=== PATIENT | female | born 1935 | race Caucasian/White ===

== ENCOUNTER 2019-08-29 17:44 | Emergency (ER) | payer MEDICARE, SELFPAY ==
[2019-08-29 18:00] VITALS: BP 185/57; PULSE 71; RESP 16; TEMP 37.8; O2SAT 98
--- NOTE | 2019-08-29 18:30 | ED.GENADULT ---
HPI - General Adult General Chief complaint: Fall Stated complaint: fall Time Seen by Provider: 08/29/19 18:07 Source: patient and RN notes reviewed Mode of arrival: ambulatory Limitations: no limitations History of Present Illness HPI narrative: Patient presents today complaining of an injury to her forehead and right hand. She was outside walking and exercising when she tripped and fell forward, striking her forehead on the concrete. Injury occurred just prior to arrival. Denies loss of consciousness. Denies any current headache, nausea or vomiting, dizziness or lightheadedness, vision changes, neck pain. Believes she is up-to-date on her tetanus vaccine. Reports she did have a nosebleed following the injury, but this stopped prior to arrival. She does take aspirin daily, but is on no other blood thinners. MD complaint: Head injury Related Data Home Medications Medication Instructions Recorded Confirmed aspirin 81 mg PO DAILY 08/29/19 08/29/19 atenolol 1 mg DAILY 08/29/19 08/29/19 biotin 1 mg DAILY 08/29/19 08/29/19 cholecalciferol (vitamin D3) 50 mcg PO DAILY 08/29/19 08/29/19 [Vitamin D3] hydrochlorothiazide 1 mg PO DAILY 08/29/19 08/29/19 levothyroxine 1 mcg PO DAILY 08/29/19 08/29/19 simvastatin 1 mg PO DAILY 08/29/19 08/29/19 vitamins A,C,A-nzth-ldkato 2 tablet PO DAILY 08/29/19 08/29/19 [PreserVision AREDS] Allergies Allergy/AdvReac Type Severity Reaction Status Date / Time No Known Allergies Allergy Verified 08/29/19 18:15 Review of Systems Review of Systems: Narrative: CONSTITUTIONAL: Denies body aches, fever, chills, or sweats. EYES: Denies visual changes, redness, or discharge. ENT: Denies rhinorrhea, congestion, sore throat, or otalgia. CARDIOVASCULAR: Denies chest pain, palpitations, or edema. RESPIRATORY: Denies cough or dyspnea. GASTROINTESTINAL: Denies abdominal pain, nausea, vomiting, or diarrhea. GENITOURINARY: Denies dysuria or hematuria. SKIN: Denies rash, itching. + Wound to right hand and forehead MUSCULOSKELETAL: Denies back pain, joint pain, or myalgia. NEUROLOGIC: Denies headache, numbness, tingling, or weakness. PSYCH: Denies depression or anxiety. [facility] Family History Family History (Updated 08/30/18 @ 10:54 by DOCTOR UNKNOWN) Mother Cerebrovascular accident Other Diabetes mellitus Family history of obesity Social History Social History Smoking status: Never smoker Second hand tobacco smoke exposure: No Alcohol intake: current Gender identity (if verbalized by the patient): Female Comments At time of signature, I have reviewed and agree with nursing past medical, surgical, social and family history unless otherwise noted. Please see nursing chart for further information. There is no relevant family history pertinent to the presenting complaint Exam Narrative: Exam Narrative: GENERAL: Well-appearing, well-nourished, and in no acute distress. HEAD: Normocephalic, atraumatic. EYES: EOMI. PERRL. No redness or drainage. Conjunctivae normal. No pain with EOM. Orbits are nontender. ENT: Mucous membranes pink and moist. Nares clear. No rhinorrhea. TMs normal bilaterally. Throat normal. Uvula midline. Nasal bridge is edematous and erythematous with mild tenderness. No nasal deformity noted. 1 cm laceration with large hematoma and abrasion to the forehead. Continues to ooze blood. Seems contaminated with many punctate black foreign bodies. NECK: Normal AROM. Supple. No lymphadenopathy. Nontender CHEST: No respiratory distress. Clear to auscultation. HEART: Regular rate and rhythm. No murmur appreciated. Normal peripheral pulses. EXTREMITIES: Normal range of motion. No edema. SKIN: Warm, dry, no rash. Capillary refill normal. Normal skin turgor. 1cm partial-thickness irregular skin tear to the base of the right thumb, palmar aspect. NEURO: No focal deficits. Alert and oriented x3. Gait steady. Answers all questions appropriately. PSYCH: Normal aff
--- NOTE | 2019-08-29 18:32 | PC.NURSE ---
1827- All Wounds cleansed with NS. Rt hand dressed by NP. Serrano and taped applied to forehead.
--- NOTE | 2019-08-29 18:44 | PC.NURSE ---
1800- Pt states she believes she is upto date on her tetanus, as she just got a new PCP about a year ago and was update on many things.
== END 2019-08-29 18:28 | disposition short-term general hospital (02) ==
PROVIDERS: Emergency Provider Nurse Practitioner; PCP Family Medicine
DX: S01.82XA Laceration with foreign body of other part of head, initial encounter (principal); S61.021A Laceration with foreign body of right thumb without damage to nail, initial encounter; Z79.82 Long term (current) use of aspirin; E78.00 Pure hypercholesterolemia, unspecified; I10 Essential (primary) hypertension; E05.90 Thyrotoxicosis, unspecified without thyrotoxic crisis or storm; W01.0XXA Fall on same level from slipping, tripping and stumbling without subsequent striking against object, initial encounter
CPT/HCPCS: 12001; 99212; G0463

== ENCOUNTER 2019-08-29 18:52 | Emergency (ER) | payer MEDICARE, SELFPAY ==
--- NOTE | ~2019-08-29 | CT_ITS ---
EXAMINATION: CT brain wo con EXAM DATE: 08/29/2019 19:47 INDICATION: Fall, head injury. Forehead laceration. TECHNIQUE: Spiral CT of the head was performed without contrast. Axial, coronal and sagittal images were reviewed. The dose-length product (DLP) for this examination was 605.33 mGy-cm. The exposure w as tailored according to patient size, and iterative reconstruction (ASIR) was used as additional dos e reduction technique. There is no prior study for comparison. FINDINGS: There is no acute intraparenchymal hemorrhage. No evidence of intraparenchymal brain mass lesion. No evidence of acute infarction. Please note that initial head CT has limited sensitivity f or small or acute infarctions. There is mild periventricular and subcortical hypodensity, nonspecific but probably related to small vessel ischemic disease. There is mild prominence of the sulci and v entricles related to cerebral atrophy. There is intracranial carotid arteriosclerosis. There are n o extra-axial collections. There is no mass effect or midline shift. Patient has had bilateral ocul ar lens surgery. Small left frontal scalp contusion. Left maxillary sinus air-fluid level, mild to m oderate left frontal sinus mucoperiosteal thickening. IMPRESSION: 1. No acute intracranial findings. 2. Chronic age related findings. 3. Small left frontal scalp contusion. Reviewed, dictated and finalized at location A.
--- NOTE | ~2019-08-29 | CT_ITS ---
EXAMINATION: CT facial & cervical spine wo EXAM DATE: 08/29/2019 20:57 INDICATION: Fall, facial injury. Left frontal scalp contusion. TECHNIQUE: Spiral CT of the facial bones was acquired in the axial plane. Coronal reformatted images were also reviewed. Spiral CT of the cervical spine was performed without contrast. Axial images we re reviewed. Coronal and sagittal reformatted images were also reviewed. The dose-length product (DL P) for this examination was 158.89 mGy-cm. The exposure was tailored according to patient size, and iterative reconstruction (ASIR) was used as additional dose reduction technique. There is no prior s tudy for comparison. FINDINGS: FACIAL CT: There are no displaced nasal bone fractures. The mandible, sinuses and orbits are intact. The orbits, globes and extraocular muscles are unremarkable. There is moderate left maxillary si nus mucoperiosteal thickening which is likely chronic given the wall thickening as well, with small a mount of fluid. There is small left frontal scalp contusion without underlying fracture. Mild left f rontal mucoperiosteal thickening. CERVICAL CT: There is no evidence of acute cervical fracture. The odontoid process is intact. Pre-d ens space is normal. Prevertebral soft tissue is normal. There are no soft tissue abnormalities jose ntified. There is no disc space widening or traumatic vertebral body subluxation suspected. There i s moderate cervical thoracic disc disease and some advanced upper cervical arthropathy. A detailed level by level evaluation of spondylosis can be added as addendum if requested. IMPRESSION: 1. No acute facial or cervical fracture. 2. Left maxillary and frontal opacity. Reviewed, dictated and finalized at location A.
[2019-08-29 18:55] VITALS: BP 189/64; PULSE 65; RESP 16; TEMP 36.6; O2SAT 98
[2019-08-29] MEDS: LIDO 1%/EPINEPHRINE 1:100,000 20 ML VIAL INFILTRATE (21:00)
[2019-08-29] MEDS: TETANUS,DIPHTHERIA,AC PERTUSSIS ADULT (0.5 ML) BOOSTRIX IM (22:00)
--- NOTE | 2019-08-29 22:53 | ED.FALL ---
HPI - Fall General Chief Complaint: Fall <Jennifer Stokes PA-C - Last Filed: 08/29/19 23:06> Stated Complaint: fall <Jennifer Stokes PA-C - Last Filed: 08/29/19 23:06> Time Seen by Provider: 08/29/19 20:33 <Jennifer Stokes PA-C - Last Filed: 08/29/19 23:06> Source: patient <Jennifer Stokes PA-C - Last Filed: 08/29/19 23:06> Mode of arrival: wheelchair <Jennifer Stokes PA-C - Last Filed: 08/29/19 23:06> Limitations: no limitations <Jennifer Stokes PA-C - Last Filed: 08/29/19 23:06> History of Present Illness HPI Narrative: This is a 84 year old female that presents to the ER for a fall this afternoon. Reports she was out for a walk and tripped over some uneven concrete. Reports she caught herself with her hands and hit her face. Reports laceration to her forehead and right hand. Reports swelling and bruising to the nose. Reports she takes a baby Aspirin daily. She was seen at the Urgent care for this and they cleaned and glued the laceration on the right hand and sent her here for further evaluation. Unsure of her last tetanus vaccine. Denies prodromal symptoms, loss of consciousness, vision changes, vomiting, numbness or weakness. <Jennifer Stokes PA-C - Last Filed: 08/29/19 23:06> Related Data Home Medications: Home Medications Medication Instructions Recorded Confirmed aspirin 81 mg PO DAILY 08/29/19 08/29/19 atenolol 1 mg DAILY 08/29/19 08/29/19 biotin 1 mg DAILY 08/29/19 08/29/19 cholecalciferol (vitamin D3) 50 mcg PO DAILY 08/29/19 08/29/19 [Vitamin D3] hydrochlorothiazide 1 mg PO DAILY 08/29/19 08/29/19 levothyroxine 1 mcg PO DAILY 08/29/19 08/29/19 simvastatin 1 mg PO DAILY 08/29/19 08/29/19 vitamins A,C,W-xjul-aqcjnu 2 tablet PO DAILY 08/29/19 08/29/19 [PreserVision AREDS] <Jennifer Stokes PA-C - Last Filed: 08/29/19 23:06> Allergies/Adverse Reactions: Allergies Allergy/AdvReac Type Severity Reaction Status Date / Time No Known Allergies Allergy Verified 08/29/19 18:58 <Jennifer Stokes PA-C - Last Filed: 08/29/19 23:06> Review of Systems Review of Systems: Narrative: CONSTITUTIONAL: Denies fever EYES: Denies visual changes CARDIOVASCULAR: Denies chest pain RESPIRATORY: Denies dyspnea. GASTROINTESTINAL: Denies vomiting SKIN: Reports laceration MUSCULOSKELETAL: Denies back pain, joint pain, or myalgia. NEUROLOGIC: Denies headache, numbness, or weakness. <Jennifer Stokes PA-C - Last Filed: 08/29/19 23:06> All systems reviewed & are unremarkable except as noted in HPI and below <Jennifer Stokes PA-C - Last Filed: 08/29/19 23:06> [facility] Past Medical History Medical History: Medical History (Updated 08/30/19 @ 00:00 by Background Daemon) History of chronic hypertension History of hyperlipidemia History of hypothyroidism <Jennifer Stokes PA-C - Last Filed: 08/29/19 23:06> Family History Family History: Family History (Updated 08/30/18 @ 10:54 by DOCTOR UNKNOWN) Mother Cerebrovascular accident Other Diabetes mellitus Family history of obesity <Jennifer Stokes PA-C - Last Filed: 08/29/19 23:06> Social History Social History: Social History Smoking status: Never smoker Second hand tobacco smoke exposure: No Alcohol intake: current Gender identity (if verbalized by the patient): Female <Jennifer Stokes PA-C - Last Filed: 08/29/19 23:06> Exam Narrative: Exam Narrative: GENERAL: Elderly, well-nourished, and in no acute distress. HEAD: Normocephalic. Abrasions to the forehead with 1cm linear laceration into subcutaneous tissue EYES: PERRLA and EOMI. ENT: Nares clear, no rhinorrhea or epistaxis. Mucous membranes moist. Oropharynx without tonsillar hypertrophy exudate or other lesions. Bilateral TMs pearly guevara non-bulging NECK: Supple. No adenopathy or masses. Mild midline cervical spinal tenderness CHEST: Clear to auscultation. No respiratory distress. No wheezes rales or rhonchi HEART: R
[2019-08-29 23:00] VITALS: PULSE 67; RESP 16; O2SAT 98
== END 2019-08-29 23:00 | disposition home or self-care (01) ==
PROVIDERS: Emergency Provider General Practice; PCP Family Medicine
DX: S01.81XA Laceration without foreign body of other part of head, initial encounter (principal); S61.411A Laceration without foreign body of right hand, initial encounter; M54.2 Cervicalgia; I10 Essential (primary) hypertension; R78.5 Finding of other psychotropic drug in blood; E03.9 Hypothyroidism, unspecified; Z23 Encounter for immunization; W18.09XA Striking against other object with subsequent fall, initial encounter
CPT/HCPCS: 12011; 70450; 70486; 72125; 90471; 90715; 99212; 99284; G0463

== ENCOUNTER 2020-07-30 17:43 | Emergency (ER) | payer MEDICARE, SELFPAY ==
[2020-07-30 17:50] VITALS: BP 157/75; PULSE 79; RESP 16; TEMP 36.7; O2SAT 99
[2020-07-30 17:51] VITALS: BP 157/75; PULSE 79; RESP 16; TEMP 36.7; O2SAT 99
--- NOTE | 2020-07-30 18:16 | ED.WOUNDLAC ---
HPI - Wound/Laceration General Chief Complaint: Wound/Laceration Stated Complaint: fall/head injury Time Seen by Provider: 07/30/20 17:46 Source: patient and RN notes reviewed Mode of arrival: ambulatory Limitations: no limitations History of Present Illness HPI narrative: Patient presents today with a wound to her right eyebrow. She tripped and fell outside while walking the neighborhood just prior to arrival. Denies loss of consciousness. Denies any headache, dizziness or lightheadedness, nausea or vomiting, vision changes. She does not take any aspirin or blood thinners. She currently rates her pain 2/10 and took a dose of Tylenol prior to arrival. She is up-to-date on her tetanus vaccine. Related Data Home Medications Medication Instructions Recorded Confirmed cholecalciferol (vitamin D3) 50 mcg PO DAILY 08/29/19 07/30/20 [Vitamin D3] vitamins A,C,M-ogsl-cxykfg 2 tablet PO DAILY 08/29/19 07/30/20 [PreserVision AREDS] biotin 10,000 mcg capsule mcg PO 02/13/20 04/26/20 levothyroxine 25 mcg tablet 25 mcg PO DAILY 02/13/20 07/30/20 hydrocortisone 1 % topical cream 1 applic TOPICAL BID PRN 04/26/20 07/30/20 Allergies Allergy/AdvReac Type Severity Reaction Status Date / Time No Known Allergies Allergy Verified 07/30/20 17:44 Review of Systems Review of Systems: Narrative: CONSTITUTIONAL: Denies body aches, fever, chills, or sweats. EYES: Denies visual changes, redness, or discharge. ENT: Denies rhinorrhea, congestion, sore throat, or otalgia. CARDIOVASCULAR: Denies chest pain, palpitations, or edema. RESPIRATORY: Denies cough or dyspnea. GASTROINTESTINAL: Denies abdominal pain, nausea, vomiting, or diarrhea. GENITOURINARY: Denies dysuria or hematuria. SKIN: Denies rash, itching. + Right eyebrow injury MUSCULOSKELETAL: Denies back pain, joint pain, or myalgia. NEUROLOGIC: Denies headache, numbness, tingling, or weakness. PSYCH: Denies depression or anxiety. [facility] Past Medical History Medical History Arthritis of knee left Benign hypertension Chronic pruritus History of chronic hypertension History of hyperlipidemia History of hypothyroidism Hypothyroidism determined by thyroid function test Presbycusis of both ears Surgical History Surgical History History of knee replacement (~2011) around 2015 Hx of tonsillectomy Family History Family History Mother Cerebrovascular accident Other Diabetes mellitus Family history of obesity Social History Social History Social History: Smoking status: Never smoker Second hand tobacco smoke exposure: No Alcohol intake: never Substance use: never Substance use type: does not use Gender identity (if verbalized by the patient): Female Comments At time of signature, I have reviewed and agree with nursing past medical, surgical, social and family history unless otherwise noted. Please see nursing chart for further information. There is no relevant family history pertinent to the presenting complaint Exam Narrative: Exam Narrative: GENERAL: Well-appearing, well-nourished, and in no acute distress. HEAD: Normocephalic, atraumatic. EYES: EOMI. PERRL. No redness or drainage. Conjunctivae normal. ENT: Mucous membranes pink and moist. Nares clear. No rhinorrhea. NECK: Normal AROM. Nontender. Supple. No lymphadenopathy. CHEST: No respiratory distress. EXTREMITIES: Normal range of motion. No edema. SKIN: Warm, dry, no rash. Capillary refill normal. Normal skin turgor. 5.5x3.5cm hematoma to the right eyebrow with superficial skin avulsion around the edges. No active bleeding. Areas of skin avulsion have obvious dirt from the street. NEURO: No focal deficits. Alert and oriented x3. Gait chloe
== END 2020-07-30 18:24 | disposition home or self-care (01) ==
PROVIDERS: Emergency Provider Nurse Practitioner; PCP Family Medicine
DX: S01.111A Laceration without foreign body of right eyelid and periocular area, initial encounter (principal); W01.0XXA Fall on same level from slipping, tripping and stumbling without subsequent striking against object, initial encounter; M17.0 Bilateral primary osteoarthritis of knee; I10 Essential (primary) hypertension; E78.5 Hyperlipidemia, unspecified; E03.9 Hypothyroidism, unspecified; Z96.659 Presence of unspecified artificial knee joint
CPT/HCPCS: 99212; A9270; G0463

== ENCOUNTER 2020-08-01 14:17 | Outpatient (CLI) | payer MEDICARE, SELFPAY ==
--- NOTE | ~2020-08-01 | XR_ITS ---
XR hand RT min 3V DATE: 08/01/2020 14:50 INDICATION: Right wrist, hand and finger injury TECHNIQUE: 3 views COMPARISON: None FINDINGS: There is a linear intra-articular fracture of the radial styloid process without displaceme nt or angulation. There is prominent osteoarthritic change at the triscaphe and first carpometacarpal joint. There is o steoarthritic change at the carpophalangeal and interphalangeal joints. Mild chondrocalcinosis at the triangular cartilage. IMPRESSION: Linear intra-articular fracture of the radial styloid process Polyarticular osteoarthritis Reviewed, dictated and finalized at location A.
== END 2020-08-01 14:18 | disposition home or self-care (01) ==
LOC: ANHIMG 14:22
PROVIDERS: PCP Family Medicine; Visit Provider Physician Assistant
DX: S69.91XA Unspecified injury of right wrist, hand and finger(s), initial encounter (principal); M79.89 Other specified soft tissue disorders; S52.514A Nondisplaced fracture of right radial styloid process, initial encounter for closed fracture; M19.031 Primary osteoarthritis, right wrist
CPT/HCPCS: 73130

== ENCOUNTER → 2022-02-25 11:37 | Outpatient (CLI) | payer MEDICARE, SELFPAY ==
--- NOTE | ~2022-02-25 | XR_ITS ---
EXAM: XR shoulder RT min 2V DATE: 02/25/2022 12:13 HISTORY: Adhesive capsulitis of unspecified shoulder no injury lrom . COMPARISON: None available. FINDINGS: Decreased mineralization. No fracture or dislocation. No lytic or blastic lesion. Moderate AC joint hypertrophy. Severe glenohumeral narrowing, sclerosis, osteophytosis, and subchondral cyst formation. Subacromial narrowing. No erosion or periosteal change. Soft tissues within normal limits. IMPRESSION: Severe, end-stage right glenohumeral osteoarthritis. Reviewed, dictated and finalized at location K. ITORY MANAGER
== END ==
PROVIDERS: PCP Family Medicine; Visit Provider Family Medicine
DX: M25.519 Pain in unspecified shoulder (principal); M75.00 Adhesive capsulitis of unspecified shoulder; M19.011 Primary osteoarthritis, right shoulder
CPT/HCPCS: 73030

== ENCOUNTER 2022-05-17 16:06 | Emergency (ER) | payer MEDICARE, SELFPAY ==
--- NOTE | 2022-05-17 16:09 | ED.GENADULT ---
HPI - General Adult General Chief complaint: Wound/Laceration Stated complaint: R HAND LACERATION Time Seen by Provider: 05/17/22 16:10 Source: patient Mode of arrival: ambulatory Limitations: no limitations History of Present Illness HPI narrative: 87-year-old female patient presents to the [facility] with complaints of a laceration to the right hand. Patient states that she tripped outside today and fell and when she went to go and catch herself with her hands cut her right hand on 1 of the metal gutters outside. Patient's last tetanus shot was in 2019. Related Data Allergies Allergy/AdvReac Type Severity Reaction Status Date / Time No Known Allergies Allergy Verified 05/17/22 16:08 Review of Systems Review of Systems: CONSTITUTIONAL: Denies fever, chills, or sweats. EYES: Denies visual changes, redness, or discharge. ENT: Denies rhinorrhea, congestion, sore throat, or otalgia. CARDIOVASCULAR: Denies chest pain, palpitations, or edema. RESPIRATORY: Denies cough or dyspnea. GASTROINTESTINAL: Denies abdominal pain, nausea, vomiting, or diarrhea. GENITOURINARY: Denies dysuria or hematuria. SKIN: Denies rash or itching. positive laceration to right hand MUSCULOSKELETAL: Denies back pain, joint pain, or myalgia. NEUROLOGIC: Denies headache, numbness, or weakness. PSYCHIATRIC: Denies anxiety or depression. 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 Primary hypertension Radial styloid fracture Right shoulder pain Right wrist injury Shoulder pain Traumatic ecchymosis of face Surgical History Surgical History History of knee replacement (~2011) around 2015 Hx of tonsillectomy Family History Family History Mother Cerebrovascular accident Other Diabetes mellitus Family history of obesity Social History Social History Social History: Smoking status: Never smoker Second hand tobacco smoke exposure: No Alcohol intake: never Substance use: never Substance use type: does not use Lack of Transportation: No Lack of Food: Never True Current Housing: I Have Housing Concerned About Future Housing: No Difficulty Paying Gas/Electric Bills: No Difficulty Paying for Meds: No Currently Unemployed: No Education: High School Diploma/GED Difficulty w/ Childcare or Family Care: No Living arrangements: alone Occupation/Education: retired Gender identity (if verbalized by the patient): Female Sexual Orientation (if Verbalized by the Patient): Straight or Heterosexual Comments At the time of my signature I agree with nursing past medical history, surgical, social, and family history. There is no relevant family history pertinent to the presenting complaint. Exam Narrative: GENERAL: Well-appearing, well-nourished, and in no acute distress. HEAD: Normocephalic, atraumatic. EYES: PERRLA and EOMI. ENT: Nares clear, no rhinorrhea or epistaxis. Mucous membranes moist. NECK: Supple. No lymphadenopathy CHEST: Clear to auscultation. No respiratory distress. HEART: Regular rate and rhythm. No murmur heard. Normal peripheral pulses. ABDOMEN: Soft, nontender, nondistended, normal active bowel sounds. E
[2022-05-17 16:14] VITALS: BP 143/58; PULSE 72; RESP 16; TEMP 37.1; O2SAT 99
== END 2022-05-17 17:07 | disposition home or self-care (01) ==
PROVIDERS: Emergency Provider Nurse Practitioner Family; PCP Family Medicine
DX: S61.411A Laceration without foreign body of right hand, initial encounter (principal); W01.0XXA Fall on same level from slipping, tripping and stumbling without subsequent striking against object, initial encounter; E03.9 Hypothyroidism, unspecified; I35.0 Nonrheumatic aortic (valve) stenosis; I10 Essential (primary) hypertension; R01.1 Cardiac murmur, unspecified; E78.2 Mixed hyperlipidemia; M17.12 Unilateral primary osteoarthritis, left knee; M19.011 Primary osteoarthritis, right shoulder
CPT/HCPCS: 12002; 99212; G0463

== ENCOUNTER 2022-06-16 09:30 | Outpatient (CLI) | payer MEDICARE, SELFPAY ==
--- NOTE | ~2022-06-16 | NM_ITS ---
EXAMINATION: NM kathy stress w perfusion DATE: 06/16/2022 13:50 INDICATION: Other forms of dyspnea. TECHNIQUE: Rest images were obtained following intravenous administration of 9.2 mCi Tc99m tetrofosmi n (Myoview). The patient was infused intravenously with Lexiscan (regadenoson). Then, 28.6 mCi Tc99m tetrofosmin (Myoview) was administered intravenously, and stress images were obtained. Data was recon structed into short axis and horizontal and vertical long axis SPECT images. Gated SPECT images were also obtained. COMPARISON: None. FINDINGS: There is no definite reversible or fixed perfusion abnormality to suggest ischemia or infar ction. There is no segmental wall motion abnormality. Left ventricular ejection fraction measures 6 3%. IMPRESSION: 1. No definite ischemia or infarct. 2. Normal left ventricular ejection fraction measuring 63%. Reviewed, dictated and finalized at location A. D CHEF
--- NOTE | 2022-06-16 09:39 | ECHO_ITS ---
Patient Info Name: Nuria Robison Age: 87 years : 1935 Gender: Female Ht: 59 in Wt: 140 lbs BSA: 1.65 m2 HR: 62 bpm BP: 170 / 72 mmHg Technical Quality: Fair Exam Date: 06/16/2022 9:45 AM Exam Location: [facility] Patient Status: Outpatient Admit Date: 06/16/2022 Staff Ordering Physician: Mak Del Castillo DO [place] Tier: Erika Schulte RDCS Attending Provider: Mak Del Castillo DO Referring Physician: Abundio CHEEK; Exam Type: CA echo doppler color flow Study Info Indications R01.1 - Cardiac murmur, unspecified Complete two-dimensional, color flow and Doppler transthoracic echocardiogram is performed. Summary 1. Complete two-dimensional, color flow and Doppler transthoracic echocardiogram is performed. 2. Left ventricular chamber dimension is normal. 3. Left ventricular systolic function is normal, estimated at 60-65%. 4. The left ventricular diastolic function is grade I diastolic dysfunction. 5. E/e' 16 is elevated. 6. Global longitudinal strain is mildly abnormal at -16.2%. 7. Left atrial chamber dimension is mildly enlarged. 8. There is moderate aortic valve sclerosis. 9. There is mild aortic valve stenosis with a peak velocity of 214 cm/s, mean gradient of 10 mmHg, and aortic valve area of 2.0 cm2. 10. The mitral valve has mildly calcified annulus. 11. No pulmonary hypertension, estimated pulmonary arterial systolic pressure is 38 mmHg. 12. There is small pericardial effusion located at free lateral wall measuring up to 1.0 cm. Left Ventricle E/e' 16 is elevated. Global longitudinal strain is mildly abnormal at -16.2%. Left ventricular chamber dimension is normal. Left ventricular systolic function is normal, estimated at 60-65%. The left ventricular diastolic function is grade I diastolic dysfunction. Right Ventricle Right ventricular systolic function is normal and with normal TAPSE 2.3 cm. Right ventricular chamber dimension is normal. Left Atria Left atrial chamber dimension is mildly enlarged. Right Atria Right atrial chamber dimension is normal. Aortic Valve The aortic valve is trileaflet. There is moderate aortic valve sclerosis. There is mild aortic valve stenosis with a peak velocity of 214 cm/s, mean gradient of 10 mmHg, and aortic valve area of 2.0 cm2. There is no aortic valve regurgitation. Pulmonic Valve There is no pulmonic regurgitation. Mitral Valve The mitral valve has mildly calcified annulus. There is no mitral valve stenosis. There is no mitral valve regurgitation. Tricuspid Valve There is no tricuspid valve regurgitation. No pulmonary hypertension, estimated pulmonary arterial systolic pressure is 38 mmHg. Pericardium/Pleural There is small pericardial effusion located at free lateral wall measuring up to 1.0 cm. No cardiac tamponade. Inferior Vena Cava Normal inferior vena cava with >50% collapse upon inspiration consistent with normal right atrial pressure, 5 mmHg. Aorta The aortic root size at the sinus of Valsalva is normal. Left Ventricular Outflow Tract Name Value Normal LVOT 2D LVOT Diameter 1.9 cm LVOT Doppler LVOT Peak Gr
--- NOTE | 2022-06-16 09:39 | EST_ITS ---
Patient Info Name: Nuria Robison Age: 87 years : 1935 Gender: Female Ht: 59 in Wt: 140 lbs BSA: 1.65 m2 HR: 58 bpm BP: 209 / 75 mmHg Heart Rhythm: Sinus Rhythm Exam Date: 06/16/2022 11:29 AM Exam Location: [facility] Stress Patient Status: Outpatient Admit Date: 06/16/2022 Staff Ordering Physician: Mak Del Castillo DO Attending Provider: Mak Del Castillo DO Exercise Technologist: Li Delvalle CT Exercise Physician: Mak Del Castillo DO Exam Type: CA stress kathy w NM Study Info Indications Z01.810 - Encounter for preprocedural cardiovascular examination A regadenoson stress test was performed. Summary 1. 1. Negative lexiscan stress test for ischemic ST changes by ECG criteria. 2. 2. Baseline hypertension. 3. 3. Nuclear scan to follow and will be reported separately. Please correlate with it. 4. 4. Patient informed of the above results. Protocol: Lexiscan Stress ECG Details Stage: REST Duration (min): 1 min : 56 sec HR (bpm): 60 SBP (mmHg): 225 DBP (mmHg): 76 Stage: REST Duration (min): 4 min : 3 sec HR (bpm): 58 SBP (mmHg): 209 DBP (mmHg): 82 Stage: REST Duration (min): 8 min : 26 sec HR (bpm): 60 SBP (mmHg): 210 DBP (mmHg): 79 Stage: STAGE 1 Duration (min): 1 min : 0 sec HR (bpm): 73 SBP (mmHg): 210 DBP (mmHg): 79 Stage: RECOVERY Duration (min): 1 min : 0 sec HR (bpm): 79 SBP (mmHg): 215 DBP (mmHg): 69 Stage: RECOVERY Duration (min): 2 min : 0 sec HR (bpm): 82 SBP (mmHg): 215 DBP (mmHg): 69 Stage: RECOVERY Duration (min): 3 min : 0 sec HR (bpm): 82 SBP (mmHg): 170 DBP (mmHg): 68 Stage: RECOVERY Duration (min): 3 min : 16 sec HR (bpm): 82 SBP (mmHg): 170 DBP (mmHg): 68 Rest HR: 60 bpm Peak HR: 85 bpm Rest Sys BP: 210 mmHg Peak Sys BP: 215 mmHg Max Pred HR: 133 bpm % Max Pred HR: 64 % Target HR: 113 bpm Max RPP: 18,275 bpm*mmHg Termination Reason: Completed protocol Cardiac Symptoms: Shortness of breath Total Time: 1 min : 0 sec Rest Bella BP: 79 mmHg Peak Bella BP: 69 mmHg Total Dose: 0.4 mg Resting ECG Sinus rhythm, cannot r/o septal infarct, age indeterminate. Stress ECG No ST changes. Arrhythmias None. Report Signatures
== END 2022-06-16 09:31 | disposition home or self-care (01) ==
LOC: ANHCARD 09:31
PROVIDERS: PCP Family Medicine; Visit Provider Internal Medicine Cardiovascular Disease
DX: R01.1 Cardiac murmur, unspecified (principal); R06.09 Other forms of dyspnea; I10 Essential (primary) hypertension; I08.0 Rheumatic disorders of both mitral and aortic valves; I31.39 Other pericardial effusion (noninflammatory)
CPT/HCPCS: 78452; 93017; 93306; A9502; J2785

== ENCOUNTER 2022-06-25 13:30 | Outpatient (CLI) | payer MEDICARE, SELFPAY ==
--- NOTE | ~2022-06-25 | CT_ITS ---
EXAMINATION: CT shoulder RT wo con DATE: 06/25/2022 14:00 INDICATION: Right shoulder osteoarthritis. Preop. TECHNIQUE: Computed tomography (CT) of the right shoulder was performed without intravenous contrast. Automated exposure control and iterative reconstruction technique were employed. The dose-length pro duct was 483.93 mGy-cm. COMPARISON: Right shoulder radiographs 02/25/2022 FINDINGS: Bone alignment is normal. No fracture. There is severe osteoarthritis of acromioclavicular joint. There is advanced osteoarthritis of glenohumeral joint including bone volume loss of glenoid. There is an old healed fracture of right seventh rib. There is volume loss in mild fatty atrophy of s upraspinatus and infraspinatus muscle bellies. There is volume loss and moderate fatty atrophy of sub scapularis muscle belly superiorly. IMPRESSION: 1. Advanced osteoarthritis of right glenohumeral joint. Reviewed, dictated and finalized at location A. INE TACK PULLER
== END 2022-06-25 13:31 | disposition home or self-care (01) ==
PROVIDERS: PCP Family Medicine; Visit Provider Orthopaedic Surgery
DX: M19.011 Primary osteoarthritis, right shoulder (principal)
CPT/HCPCS: 73200

== ENCOUNTER 2022-07-28 10:01 | Outpatient (CLI) | payer MEDICARE, SELFPAY | END 2022-07-28 10:02 | disposition home or self-care (01) | PROVIDERS: PCP Family Medicine; Visit Provider Orthopaedic Surgery | DX: Z01.812 Encounter for preprocedural laboratory examination (principal); M19.011 Primary osteoarthritis, right shoulder | CPT/HCPCS: 87081 ==

== ENCOUNTER 2022-08-26 13:22 | Observation (INO) | payer MEDICARE, SELFPAY ==
--- NOTE | 2022-07-28 10:55 | PC.NURSE ---
Report to the Outpatient Waiting Room, entrance under the green pavilion located off [facility], at time _1000 on date _08/25/22 . Planned Procedure Time: 1200 . Time changes happen often and if your time is changed the preop area will call you the afternoon before. - You and your visitor will be asked to self-screen and do not enter if you have any COVID symptoms. - A mask is optional within the hospital at this time. Patients may have clear liquids (water, carbonated beverages, clear teas, apple juice) until 3 hours prior to surgery with a maximum of 20 ounces. - No food from midnight until time of surgery - Infants may have breast milk until 4 hours before surgery, formula 6 hours prior to surgery. - Children will be allowed to drink immediately following surgery. If applicable, please bring a bottle or sippy cup to assist with drinking. Juice, water, soda, and popsicles are readily available. For infants on formula, please bring formula the day of surgery. Pacifiers are allowed. Take the following medications with a SIP of water the morning of surgery: ____ATENOLOL,LEVOTHYROXINE DO NOT STOP ANY OF YOUR OTHER PRESCRIPTION MEDICATIONS PRIOR TO SURGERY ?EXCEPT THE FOLLOWING Medications to discontinue per physician _FAMILY STATES HOLD ALL VITAMINS/SUPPPLEMENTS ,ADVIL/IBUPROFEN 7 DAYS PRE OP . LAST DOSE AUGUST 17 Please no make-up, nail mosotho, hairspray, perfume, deodorant, or body powder the day of surgery. No jewelry (including any body piercings) or valuables the day of surgery, leave them at home. Please take a shower or bath the night before, or the morning of, surgery with an antibacterial soap. Wear comfortable, loose fitting clothing. Children are encouraged to wear pajamas. - Jewelry must be removed prior to entering the operating room. Rings and piercings that are not removed may be cut off. - The hospital will not accept responsibility for valuables. - Please leave all valuables, including medications, at home the day of surgery. If you are going home after surgery, a licensed jeep driver must drive you home. - NO public transportation without another adult if you receive anesthesia. - We recommend that an adult stay with you for 24 hours following discharge. - We also recommend that you do not drive, make important decision, drink alcoholic beverages, or take any drugs that were not prescribed by your health care provider for at least 24 hours after your discharge time. Follow any additional instructions given to you from your surgeon. If you or anyone in your household have experienced Covid symptoms in the past week, please notify your surgeon or the nurse liaison at the phone number below for possible testing. VERBAL AND WRITTEN instructions given to _PATIENT AND SON AND DAUGHTER and asked if any additional questions and then verbalized understanding. Patient advised to call surgeon office or pre surgery nurse liaison [phone] if any additional questions.
[2022-07-28 11:27] VITALS: BP 151/53; PULSE 55; RESP 18; TEMP 37.1; O2SAT 100; BMI 28.7
[2022-08-25] VITALS (14 sets, daily range): BP systolic 135–199; BP diastolic 42–65; PULSE 58–82; RESP 12–20; TEMP 35.9–36.7; O2SAT 96–100; BMI 28.6
--- NOTE | 2022-08-25 10:43 | WPDANESEPPF ---
Anes - Initial Pre Proc Eval Procedure: Operation Date: 08/25/22 12:00 Proposed Procedures p Reverse Right Total Shoulder Arthroplasty - Mick Goldsmith MD Date/Time: 08/25/22 10:43 Surgeon: Mick Goldsmith MD Pre Op Diagnosis: primary oa right shoulder Patient Data Age: 87 Gender: F Height: 1.5 m Weight: 64.5 kg Last Vital Signs Temp 37.1 C 07/28/22 11:27 Pulse 55 L 07/28/22 11:27 Resp 18 07/28/22 11:27 BP 151/53 H 07/28/22 11:27 Pulse Ox 100 07/28/22 11:27 O2 Del Method Room Air 07/28/22 11:27 Allergies Allergy/AdvReac Type Severity Reaction Status Date / Time No Known Allergies Allergy Verified 08/25/22 10:44 Home Medications Medication Instructions Recorded Confirmed Type atenolol 25 mg tablet See Rx Instructions .Route 04/22/22 08/21/22 Rx .COMPLEX #90 tabs hydrochlorothiazide 25 mg tablet 25 mg PO DAILY #90 tabs 07/07/22 08/21/22 Rx simvastatin 20 mg tablet See Rx Instructions .Route 07/10/22 08/21/22 Rx .COMPLEX #90 tabs biotin 5,000 mcg sublingual tablet 5,000 mcg sublingual DAILY 07/28/22 08/21/22 History candesartan 8 mg tablet (Atacand) 8 mg PO HS 07/28/22 08/21/22 History cholecalciferol (vitamin D3) 10 10 mcg PO DAILY 07/28/22 08/21/22 History mcg (400 unit) capsule ibuprofen 200 mg tablet (Advil) 200 mg PO Q6H PRN Pain 07/28/22 08/21/22 History vitamins A,C,D-qoxa-kzpiks 4,296 1 cap PO BID 07/28/22 08/21/22 History mcg-226 mg-90 mg capsule (PreserVision AREDS) levothyroxine 25 mcg tablet See Rx Instructions .Route 08/11/22 08/21/22 Rx .COMPLEX #90 tabs Patient hx anesthesia problems: none Family hx anesthesia problems: none Results Review: All pre-operative results and documents have been reviewed as part of the pre-operative evaluation. 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 Primary hypertension Radial styloid fracture Right wrist injury Traumatic ecchymosis of face Surgical History Surgical History History of knee replacement (~2011) around 2014 Hx of tonsillectomy Family History Family History Mother Cerebrovascular accident Other Diabetes mellitus Family history of obesity Social History Social History Social History: Smoking status: Never smoker Second hand tobacco smoke exposure: No Alcohol intake: never Substance use: never Substance use type: does not use Lack of Transportation: No Lack of Food: Never True Current Housing: I Have Housing Concerned About Future Housing: No Difficulty Paying Gas/Electric Bills: No Difficulty Paying for Meds: No Currently Unemployed: No Education: High School Diploma/GED Difficulty w/ Childcare or Family Care: No Living arrangements: alone Occupation/Education: retired Gender identity (if verbalized by the patient): Female Sexual Orientation (if Verbalized by the Patient): Straight or Heterosexual Spiritual care concerns: No Anes - Eval Final PreProcedure Day of Procedure 08/25/22 10:43 Patient weight: overweight Heart: regular rate and rhythm and murmur (II/ SM) Lungs: clear to auscultation Airway: Mallampati scale class II
[2022-08-25] MEDS: LACTATED RINGERS 1,000 ML 30 ML IV CONT ×2 (11:08→15:50)
[2022-08-25] MEDS: TRANEXAMIC ACID 1,000MG/ISO100 1,000 MG/100 ML BAG 200 MG IVPB (11:31)
--- NOTE | 2022-08-25 12:04 | WPDHPUPDATE1 ---
History and Physical Update Update Date/Time: 08/25/22 12:04 History and Physical has been reviewed, including an updated exam of the patient. There are NO changes in the patient's condition. Risks, benefits, and alternatives have been discussed and questions answered. Patient agrees to proceed with procedure.
[2022-08-25] MEDS: ceFAZolin 2 GM/D5W 50 ML 2 GM/50 ML BAG IVPB ×2 (12:32→20:35)
[2022-08-25] MEDS: VANCOMYCIN HCL 1,000 MG VIAL 1000 MG TOPICAL (13:23)
--- NOTE | 2022-08-25 15:49 | W.PM.PROC2 ---
Procedure Note - Detailed Date of Procedure 08/25/22 Pre-op Diagnosis primary oa right shoulder Post-op Diagnosis Same Procedure Performed Reverse total shoulder arthroplasty, right. Surgeon Mick Goldsmith MD Scanning Tech Janel Stroud PA-C Anesthesia General and Regional (Interscalene block.) Indications Severe unrelenting pain and dysfunction. Despite the patient's age she remains fairly active and lives alone. She has a supportive family. Findings Severe contracture of the shoulder with no external rotation capable. 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 Medialization and superior translation of the humeral head. Exposing the humerus from the coracoid was very restricted initially. Careful removal osteophytes and excision of the posterior capsule was required for exposure. The upper 1 cm of the pectoralis was released. Pectoralis muscle tissue also tore with external rotation due to the previous years of contracture and immobility of the tissues. This was repaired at the conclusion of the procedure. Bone quality was quite good. 15 degree augment was used to correct preoperative bone loss. This matched the 3 dimensional preoperative planning software. The standard +0 liner demonstrated some laxity in external rotation, which was felt to be due to the necessary posterior capsule release. However, with the arm in neutral to internal rotation the shoulder was very stable. The +3 mm polyethylene insert was extremely tight and prevented internal rotation to the abdomen. Description of Procedure The patient was given an interscalene block in the preoperative area. Preoperative antibiotics were given. The patient was transferred to the operating room and a general anesthetic was administered. The beach chair position was used at 45 degrees. All bony prominences were padded. The head was carefully stabilized on the [employer] headrig sawyer. A sterile prep and drape was performed in the usual manner with ChloraPrep. A longitudinal incision was created at the anterior shoulder just lateral to the deltopectoral interval. Hydrogen peroxide was placed on the incision and then rinsed after one minute. Careful dissection was performed to expose the interval and protect the cephalic vein. The vein was retracted medially. The upper border of the pectoralis was released. Anterior circumflex vessel branches were suture ligated. The biceps was tenodesed. A subscapularis tenotomy was performed. The inferior capsule was released, exposing the humeral head. Osteophytes were removed. Care was taken to stay on bone to protect the axillary nerve. The anatomic head cut was taken with the oscillating saw. The guide pin was placed, central drilling performed, and the broach trial inserted. The neck anteversion and inclination were carefully assessed. The cut protector was placed, and attention was turned to the glenoid. Retractors were placed. Releases were carried out for exposure. The subscapularis was mobilized, the inferior capsule and long head of triceps released, and the superior and middle glenohumeral ligaments released as well. Labral tissue was resected as needed. Due to the excessive tightness, osteophytes were removed from the posterior glenoid as well as capsule excision posteriorly. The sizing template was used to assess the baseplate position on the glenoid. A guide pin was placed. Reaming was performed initially with the standard Reamer and then with the 15 degree angled Reamer at the proximally 1:30 position for the maximum augment. This matched the preoperative 3D planning software. The boss was drilled, and the real component was impacted into position. Supplemental locking screws were placed centrally, superiorly, and inferiorly. The glenosphere was impacted into the taper. The proximal humerus was reamed for the inset component. The humeral components were trialed. The real humeral stem, tray, and
[2022-08-25] MEDS: fentaNYL CITRATE INJ (*CRX) 100 MCG/2 ML VIAL 25 MCG IV PUSH ×3 (15:58→16:40)
[2022-08-25] MEDS: ONDANSETRON INJ 4 MG/2 ML VIAL IV PUSH (18:05)
[2022-08-25] MEDS: oxyCODONE HCL (*CRX) 5 MG TAB IR PO (18:05)
[2022-08-25] MEDS: ACETAMINOPHEN 500 MG TABLET 1000 MG PO ×2 (18:05→23:16)
--- NOTE | 2022-08-25 18:05 | PM.IMCN ---
Assessment and Plan Assessment and plan (1) Status post reverse total arthroplasty of right shoulder: Code(s): Z96.611 - Presence of right artificial shoulder joint Status: Acute Assessment and Plan: Postop care per Dr. Goldsmith Analgesic per Ortho the patient is on Tylenol, Benadryl, and oxycodone as well as tramadol. PT OT per ortho DVT prophylaxis per ortho. The patient has TEDs and SCDs. The patient is asking if she can take for TEDs off at night. Continue with neurovascular checks. Encouraged the patient to use incentive spirometer (2) Mixed hyperlipidemia: Code(s): E78.2 - Mixed hyperlipidemia Status: Acute Assessment and Plan: Continue with simvastatin (3) Primary hypertension: Code(s): I10 - Essential (primary) hypertension Status: Acute Assessment and Plan: Continue with Atacand P.r.n. hydralazine. The patient's blood pressure was elevated today. However she had not taken all of her medications. The patient was recently taken off of her diuretic. The patient had been complaining of discomfort when I came to the room which may have elevated her blood pressure. Benadryl can also elevate the blood pressures. Continue with atenolol. Blood pressure is currently 135/53. (4) Hypothyroid: Code(s): E03.9 - Hypothyroidism, unspecified Status: Acute Assessment and Plan: Continue with levothyroxine Check thyroid. HPI Data of Consult Consult date: 08/25/22 Requesting Physician: Mick Goldsmith MD Primary Care Provider: Isa Pitts MD Consult Narrative Narrative: Nuria Robison is a 87 year old female who is very hard of hearing. The family is answering most the questions for her. The patient is sitting in bed eating her dinner tray. The patient has been having limited mobility to both of her shoulders. The patient underwent a right reverse total shoulder arthroplasty today. Her right arm is in a sling. The patient was having difficulty with activities of daily living. She does live home alone. She still drives. According to the family she was having difficulty raising her arms. The patient has severe osteoarthritis of the right shoulder. She had a reverse total shoulder arthroplasty on the right side today per Dr. Goldsmith. Please see operative notes. Estimated blood loss was 100 mL and no immediate complications were noted. The patient received pain medication prior to me coming into the room. The hospitalist group was asked to consult for medical management. The date of service is 08/25/2022. Review of Systems Review of Systems: All systems reviewed & are unremarkable except as noted in HPI and below Constitutional: Constitutional: Reports as per HPI and Reports no additional constitutional complaints Eyes: Eyes: Reports as per HPI and Reports no additional eye complaints ENT: Reports system reviewed and no additional complaints, except as documented and Reports Normal hearing present Cardiovascular: Cardiovascular: Reports no additional cardiovascular complaints Respiratory: Respiratory: Reports no additional respiratory complaints and Reports no additional respiratory complaints Gastrointestinal: Gastrointestinal: Reports as per HPI and Reports no additional gastrointestinal complaints Musculoskeletal: Musculoskeletal: Reports no additional musculoskeletal complaints Integumentary/Breasts: Skin/Breast: Reports system reviewed and no additional complaints, except as docu and Reports as per HPI Neurologic: Reports system reviewed and no additional complaints, except as documented, Reports as per HPI and Reports Normal hearing present Psychiatric: Psychiatric: Reports no additional psychiatric complaints and Reports as per HPI Endocrine: Endocrine: Reports no additional endocrine complaints Hematologic/Lymphatic: Hematologic/Lymphatic: Reports no additional hematologic/lymphatic complaints Allergic/Immun
[2022-08-25] MEDS: SODIUM CHLORIDE 0.9% IV 1,000 ML 125 ML IV CONT (18:07)
[2022-08-25] MEDS: MELOXICAM 7.5 MG TABLET PO (18:22)
[2022-08-25] MEDS: ASPIRIN 81 MG ENTERIC TABLET PO (18:22)
[2022-08-25] MEDS: SENNA/DOCUSATE SODIUM TABLET 2 TAB PO (18:22)
--- NOTE | 2022-08-25 18:23 | ADMGEN ---
This patient, Nuria Robison, was admitted to 3 Med Surg Room 300-01. Patient/family oriented to hospital policies and general routines including ID bracelet, bed and alarms, visiting hours, pain management, procedures, bathroom and other care routines, personal items, smoking policy, room service/diet, and visiting hours. Information on how to activate the Rapid Response Team has been discussed. Patient/Family are encouraged to report perceived risks to care and to ask questions if they do not understand what they are told or what they should do. Patient Alert and orientated , SCDs applied, VSS, +3 pulse in R wrist, able to wiggle fingers, no c/o numbness or tingling Erika Arrington RN
[2022-08-25] MEDS: FAMOTIDINE 20 MG TABLET PO (20:35)
[2022-08-26] VITALS (9 sets, daily range): BP systolic 111–193; BP diastolic 52–68; PULSE 62–72; RESP 18; TEMP 36.3–36.7; O2SAT 97–100
--- NOTE | ~2022-08-26 | XR_ITS ---
EXAMINATION: XR shoulder RT min 2V DATE: 08/25/2022 16:39 INDICATION: Right reverse total shoulder arthroplasty TECHNIQUE: AP and transscapular Y views of the right shoulder were obtained. COMPARISON: None FINDINGS: Interval placement of a reverse right total shoulder arthroplasty which appears in near-anatomic alig nment. No fractures identified. Moderate osteoarthritis at the right acromioclavicular joint. Expecte d postoperative soft tissue gas about the right shoulder. Visualized portions of the lungs are clear. There are bridging osteophytes at multiple levels in the thoracic spine consistent with diffuse idio pathic skeletal hyperostosis (DISH). IMPRESSION: Expected appearance post right reverse total shoulder arthroplasty. Reviewed, dictated and finalized at location A.
[2022-08-26] MEDS: ACETAMINOPHEN 500 MG TABLET 1000 MG PO ×3 (05:31→18:21)
[2022-08-26] MEDS: LEVOTHYROXINE SODIUM 25 MCG TABLET BY MOUTH (05:32)
[2022-08-26 06:25] LABS: Basophils Absolute Auto 0.1 K/mm3 (0.0-0.1); Basophils Percent Auto 0.5 % (0.2-1.2); Eosinophils Percent Auto 0.3 % (0-4.4); Hematocrit 31.7 % (37.0-47.0); Hemoglobin 10.5 g/dL (12.0-15.0); Immature Granulocyte Absolute 0.06 K/mm3 (0.00-0.031); Immature Granulocyte Percent A 0.4 % (0-0.5); Lymphocytes Absolute Auto 1.85 K/mm3 (0.9-3.2); Mean Corpuscular HGB Conc 33.1 g/dl (32-36); Mean Corpuscular Volume 93.5 fl (80-100); Mean Platelet Volume 10.3 fl (7.4-10.4); Monocytes Absolute Auto 2.1 K/mm3 (0.1-0.6); Monocytes Percent Auto 14.5 % (2.6-8.5); Neutrophils Absolute Auto 10.1 K/mm3 (1.3-6.7); Neutrophils Percent Auto 71.3 % (45.5-73.1); Platelet Count Result 239 k/mm3 (150-375); Red Blood Count 3.39 M/mm3 (4.2-5.4); Red Cell Distribution Width 12.8 % (11.5-14.5); White Blood Count 14.2 K/mm3 (4.5-10.0)
--- NOTE | 2022-08-26 06:25 | PC.NURSE ---
When rounding on the pt, she was trying to get out of bed and was sideways in the bed. Prior to readjusting her in bed, the dressing over the surgical incision to the pt's Right shoulder had bright red blood on it. There was a hematoma forming below the dressing that extended down to the pt's elbow on the medial side of the arm. Vital signs are stable at this time. I attempted to call the on-call MD and left a voicemail.
[2022-08-26 06:45] LABS: Anion Gap 6 mmol/L (8-16); Blood Urea Nitrogen 13 mg/dL (7-17); Calcium 7.9 mg/dL (8.4-10.2); Carbon Dioxide 30 mmol/L (22-30); Chloride 95 mmol/L (98-107); Estimated Glomerular Filt Rate > 60; Glucose 113 mg/dL (65-110); Potassium 3.1 mmol/L (3.4-5.0); Sodium 131 mmol/L (137-145)
--- NOTE | 2022-08-26 07:08 | P.PNAN_ITS ---
Anes - Prog Note Post-Op Date/Time: 08/26/22 07:08 Cardiovascular status: normal Respiratory status: normal Airway patency: baseline Mental status: baseline Post-Op hydration status: normal Vital Signs: Last Vital Signs Temp 97.9 F 08/26/22 06:25 Pulse 62 08/26/22 06:25 Resp 18 08/26/22 06:25 BP 111/68 08/26/22 06:25 Pulse Ox 97 08/26/22 06:25 O2 Del Method Room Air 08/25/22 18:10 O2 Flow Rate 2 08/25/22 17:00 Pain Score (VAS): 9. appears to be resting comfortable I/O: Intake & Output 08/25/22 08/25/22 08/26/22 15:59 23:59 07:59 Intake Total 50 450 225 Balance 50 450 225 Laboratory Tests 08/26/22 06:11 08/26/22 06:11 08/25/22 08/26/22 10:14 06:11 WBC 14.2 H RBC 3.39 L Hgb 10.5 L Hct 31.7 L MCV 93.5 MCH 31.0 MCHC 33.1 RDW 12.8 Plt Count 239 MPV 10.3 Immature Gran % (Auto) 0.4 Neut % (Auto) 71.3 Lymph % (Auto) 13.0 L Dawson % (Auto) 14.5 H Eos % (Auto) 0.3 Baso % (Auto) 0.5 Lymph # (Auto) 1.85 Dawson # (Auto) 2.1 H Eos # (Auto) 0.0 Baso # (Auto) 0.1 Abs Immat Gran (auto) 0.06 H Absolute Neuts (auto) 10.1 H Absolute Nucleated RBC 0.0 Nucleated RBC % 0.0 Sodium 131 L Potassium 3.1 L Chloride 95 L Carbon Dioxide 30 Anion Gap 6 L BUN 13 Creatinine 0.60 L Estim Creat Clear Calc Not Reportable Estimated GFR > 60 Glucose 113 H Calcium 7.9 L Blood Type O Positive Antibody Screen Negative Post-procedural complaints: none Patient Feedback: Patient satisfied with anesthetic care.
--- NOTE | 2022-08-26 08:02 | PCOTNOTE ---
Attempted OT evaluation, per RN the ortho MD is coming to see patient due to patient being confused and moving surgical UE. Will complete following ortho clearance.
[2022-08-26] MEDS: SENNA/DOCUSATE SODIUM TABLET 2 TAB PO ×2 (11:00→18:21)
[2022-08-26] MEDS: POTASSIUM CHLORIDE 20 MEQ TABLET 40 MEQ PO (11:00)
[2022-08-26] MEDS: ASPIRIN 81 MG ENTERIC TABLET PO ×2 (11:01→18:21)
[2022-08-26] MEDS: atenoloL 25 MG TABLET BY MOUTH (11:01)
[2022-08-26] MEDS: SIMVASTATIN 20 MG TABLET BY MOUTH (11:02)
[2022-08-26] MEDS: polyethylene glycoL 3350 17 GM POWD.PACK PO (11:02)
[2022-08-26] MEDS: MELOXICAM 7.5 MG TABLET PO ×2 (11:02→18:23)
[2022-08-26] MEDS: FAMOTIDINE 20 MG TABLET PO ×2 (11:02→19:59)
--- NOTE | 2022-08-26 11:24 | PM.IMPN ---
Progress Note: A&P Assessment and Plan (1) Status post reverse total arthroplasty of right shoulder: Code(s): Z96.611 - Presence of right artificial shoulder joint Status: Acute Assessment and Plan: Postop care per Dr. Goldsmith Analgesic per Ortho the patient is on Tylenol, Benadryl, and oxycodone as well as tramadol. PT OT per ortho DVT prophylaxis per ortho. The patient has TEDs and SCDs. The patient is asking if she can take for TEDs off at night. Continue with neurovascular checks. Encouraged the patient to use incentive spirometer (2) Mixed hyperlipidemia: Code(s): E78.2 - Mixed hyperlipidemia Status: Acute Assessment and Plan: Continue with simvastatin (3) Primary hypertension: Code(s): I10 - Essential (primary) hypertension Status: Acute Assessment and Plan: Continue with Atacand P.r.n. hydralazine. The patient's blood pressure was elevated today. However she had not taken all of her medications. The patient was recently taken off of her diuretic. The patient had been complaining of discomfort when I came to the room which may have elevated her blood pressure. Benadryl can also elevate the blood pressures. Continue with atenolol. Blood pressure is currently 135/53. (4) Hypothyroid: Code(s): E03.9 - Hypothyroidism, unspecified Status: Acute Assessment and Plan: Continue with levothyroxine Check thyroid. Subjective Date/time seen: 08/26/22 11:24 Interval history: doing well no complaints Exam Const: General: cooperative, healthy appearing, comfortable, no acute distress, well developed, alert, awake, Physically active, average body habitus and well nourished Nutritional Appearance: average body habitus and well nourished Orientation/consciousness: oriented to person, oriented to place, oriented to time and patient oriented x3 Limitations: no limitations HENMT: Head: normal to inspection, No palpable skull fracture present, normocephalic, atraumatic and abrasion Ears: external ears normal and hearing grossly impaired Face/Nose/Sinus: Normal external nose present and Normal nares present Eyes: General: appearance normal, both eyes and all related structures Alignment and Position: alignment normal Periorbital: periorbital findings normal Eyelids: eyelids normal Sclera: sclerae normal Pupils: Equal, round and reactive pupils present EOM: EOMs intact bilaterally Neck: Neck: normal visual inspection, full ROM, no lymphadenopathy, trachea midline and supple Chest: Chest palpation & inspection: normal inspection of the chest Resp: Effort & Inspection: normal respiratory effort Auscultation: clear to auscultation bilaterally Cardio: Palpation: normal PMI Rate: regular rate Rhythm: regular rhythm Heart sounds: S1 normal heart sound present and S2 normal heart sound present Peripheral pulses: Peripheral pulses 2+ throughout GI: Inspection: normal to inspection Auscultation: normal bowel sounds Rectal Exam: deferred Back/Spine/Pelvis: Cervical Spine: cervical ROM normal Skin: General skin exam: normal color Lesions: no lesions Rashes: no rashes Trauma: no lacerations or abrasions Wounds: no wounds Hair: normal Nails: normal Neuro: General: oriented to person, oriented to place, oriented to time and patient oriented x3 Cranial nerves: Yes Equal, round and reactive pupils present, Yes Normal hearing present and Yes hard of hearing Cognition (Neuro): normal cognition Speech: normal speech Motor exam (neuro): 5/5 motor strength present throughout Sensory Exam: normal sensation Other: She has 1 hearing aid in left urine is still very hard of hearing Extrem: General: normal to inspection Right upper extremity: normal to inspection and shoulder/upper arm (Right arm in a sling with dressing dry and intact to right shoulder.) Left upper extremity: normal to inspection and shoulder/upper arm Right lower extremity: normal t
[2022-08-26] MEDS: ceFAZolin 2 GM/D5W 50 ML 2 GM/50 ML BAG IVPB (11:50)
--- NOTE | 2022-08-26 11:52 | PM.PNORT ---
Progress Note: A&P Assessment and Plan (1) Status post reverse total arthroplasty of right shoulder: Code(s): Z96.611 - Presence of right artificial shoulder joint Status: Acute Assessment and Plan: Postop day 1: Right reverse total shoulder arthroplasty Patient had some confusion last night and moved her shoulder around. This likely caused the hematoma and bleeding. Will change dressing later today. Patient is a fall risk due to her confusion and overall condition. She typically lives at home by herself. She does not believe she will be able to take care of herself. Also increased pain today. She has an extensive surgery requiring significant releases of the veras and due contraction. Will need to keep her overnight to observe the hematoma. She will start formal physical therapy however we do not want her to externally rotate pasted neutral or forward flex past 90. Due to hematoma, we will put patient on an extended antibiotic. Spoke with patient's nurse multiple times today. Patient is seeming confused more and more. Will re-assess tomorrow. Subjective Subjective Date/Time Seen: 08/26/22 08:30 Interval history: Patient resting comfortably in chair. She states she was confused last night and twisted her arm, felt a pop, and then noticed some increased bruising and drainage at the incision. She is very concerned about her ability to return home. Notes increased pain in the shoulder. Review of Systems Review of Systems: All systems reviewed & are unremarkable except as noted in HPI and below Exam Narrative: Overweight elderly 87 y/o female. Resting comfortably in chair. Wearing sling. Dressing dry and intact with 2 inch diameter area of bloody discharge. Large hematoma. Significant swelling. Moderate ecchymosis. No erythema. Range of motion limited due to pain. Calf nontender. Neurologic status intact. No varicosities. Distal pulses palpable. Objective Data Vital Signs Vital Signs: Vital Signs - 24 hr 08/25/22 15:50 08/25/22 16:00 08/25/22 16:15 Temperature 97.1 F L Pulse Rate 69 59 L 59 L Respiratory Rate 17 12 14 Blood Pressure 184/51 H 181/47 H 164/53 H Pulse Oximetry 100 100 96 Oxygen Delivery Simple Face Mask Simple Face Mask Room Air Oxygen Flow Rate 8 8 08/25/22 16:30 08/25/22 16:45 08/25/22 17:00 Temperature Pulse Rate 70 60 60 Respiratory Rate 12 16 16 Blood Pressure 164/65 H 170/60 H 177/55 H Pulse Oximetry 100 100 100 Oxygen Delivery Nasal Cannula Nasal Cannula Nasal Cannula Oxygen Flow Rate 2 2 2 08/25/22 18:10 08/25/22 17:20 08/25/22 17:35 Temperature 97.0 F L 97.5 F L Pulse Rate 65 60 Respiratory Rate 16 18 Blood Pressure 187/63 H 199/59 H Pulse Oximetry 100 100 100 Oxygen Delivery Room Air Oxygen Flow Rate 08/25/22 18:05 08/25/22 19:03 08/25/22 20:04 Temperature 97.5 F L 97.4 F L 98.0 F Pulse Rate 76 82 75 Respiratory Rate 20 18 18 Blood Pressure 199/53 H 148/42 H 135/53 L Pulse Oximetry 99 99 99 Oxygen Delivery Oxygen Flow Rate 08/26/22 02:21 08/26/22 06:00 08/26/22 06:25 Temperature 98.0 F 97.9 F 97.9 F Pulse Rate 67 62 62 Respiratory Rate 18 18 18 Blood Pressure 152/58 H 111/68 111/68 Pulse Oximetry 100 97 97 Oxygen Delivery Oxygen Flow Rate 08/26/22 07:31 08/26/22 07:44 08/26/22 09:34 Temperature 97.5 F L Pulse Rate 71 Respiratory Rate 18 Blood Pressure 193/62 H 160/52 H Pulse Oximetry 98 Oxygen Delivery Room Air Oxygen Flow Rate 08/26/22 10:04 08/26/22 11:01 Temperature Pulse Rate 72 Respiratory Rate Blood Pressure Pulse Oximetry Oxygen Delivery Room Air Oxygen Flow Rate Intake/Output Intake/Output: Intake & Output 08/23/22 08/24/22 08/25/22 08/26/22 23:59 23:59 23:59 23:59 Intake Total 500 343 Balance 500 343 Meds/Results Medications: Active Medications Generic Name Dose Route Start Last Admin Trade Name Freq PRN Reason Stop Dose Admin Faustino
[2022-08-26] MEDS: oxyCODONE HCL (*CRX) 5 MG TAB IR PO (12:16)
[2022-08-26] MEDS: HALOPERIDOL LACTATE 5 MG/ML VIAL 2 MG IM (16:53)
[2022-08-26] MEDS: QUEtiapine FUMARATE 12.5 MG TABLET PO (18:21)
--- NOTE | 2022-08-26 19:52 | PC.NURSE ---
Pt agitated throughout the morning shift. Family called this RN, Ju Fierro RN-MO, and CUSTOMER DEVELOPMENT REPRESENTATIVE to room repeatedly to help with pt behaviors. Pt confused and sarcastic with family and staff. Josue Crandall, and Dr. Goldsmith by to see pt, providing education and reassurance to family and pt. Staff continued to reinforce pt safety with pt who wanted to ambulate independently to the bathroom and to her bedroom . Pt becoming more and more frustrated with lack of independence throughout the shift. Bed alarms sounding frequently; pt moved to 305. Pt remains agitated and ripped out IV, stating no more toxic material to be given to her. While this RN was administering blood to another pt, pharmacist in charge owner and three other staff to pt room responding to bed alarm and pt not wanting to return to bed or chair. Pt physically aggressive with staff. This RN called to PA and hospitalist for med changes. Hospitalist ordered PO seroquel and PA ordered nubain and cancelled celia. Pt continues to scream for help and the police. Security present to bedside to promote patient safety. Called hospitalist again as pt refusing to take PO meds at this time d/t concerns that staff was trying to poison her. IM haldol ordered, given by this RN. Pt slowing down her actions and speech but still refusing to sit. Pt family to bedside and staff sitting with pt. Pt finally agreeable to take her vitamins . Medications given. Continued to monitor. Report given to night RN. Pt sleeping at this time.
--- NOTE | 2022-08-26 19:52 | PC.NURSE ---
Patient's bed alarm going off around 1500. Emma responded to alarm. Patient confused, agitated, and refusing to sit down. Patient safely ambulated with Emma and I to Room 305-01 to be closer to the Nurses Station. Patient in bed. Patient's bed alarm going off around 1630. I responded and patient is sideways in bed with shoulder immobilizer off. Myself and other staff tried to put her immobilizer back on, but patient became combative - kicking, hitting, and yelling. Immobilizer was eventually successfully put back on. Patient requested the sewer pipe layer helper, so I notified Security. Security came up and assisted patient. Patient finally sat in her recliner. Security at bedside for awhile. Patient's RNs notified MD and family. House Supervisory aware of situation at the time Security arrived.
[2022-08-26] MEDS: CEPHALEXIN 500 MG CAPSULE PO (20:03)
[2022-08-27] MEDS: ACETAMINOPHEN 500 MG TABLET 1000 MG PO ×2 (02:30→11:57)
[2022-08-27 06:00] VITALS: BP 163/56; PULSE 72; RESP 18; TEMP 36.3; O2SAT 98
--- NOTE | 2022-08-27 07:05 | PC.NURSE ---
[facility] downtime beginning 08/26/22 at 2145 through 08/27/22 at 0615.
[2022-08-27] MEDS: SIMVASTATIN 20 MG TABLET BY MOUTH (08:36)
[2022-08-27] MEDS: CEPHALEXIN 500 MG CAPSULE PO (08:36)
[2022-08-27 08:37] VITALS: PULSE 88
[2022-08-27] MEDS: ASPIRIN 81 MG ENTERIC TABLET PO (08:37)
[2022-08-27] MEDS: FAMOTIDINE 20 MG TABLET PO (08:37)
[2022-08-27] MEDS: polyethylene glycoL 3350 17 GM POWD.PACK PO (08:37)
[2022-08-27] MEDS: atenoloL 25 MG TABLET BY MOUTH (08:37)
[2022-08-27] MEDS: MELOXICAM 7.5 MG TABLET PO (08:37)
[2022-08-27] MEDS: LEVOTHYROXINE SODIUM 25 MCG TABLET BY MOUTH (08:38)
--- NOTE | 2022-08-27 11:54 | PM.DS ---
DS: Admitting Diagnosis Discharge Date 08/27/22 Admitting Diagnosis Glenohumeral joint arthritis. DS: Discharge Diagnosis Discharge Diagnosis (1) Status post reverse total arthroplasty of right shoulder: Code(s): Z96.611 - Presence of right artificial shoulder joint Status: Acute Assessment and Plan: Postop day 1: Right reverse total shoulder arthroplasty. Patient lives at home and has been having some confusion and sundowning symptoms. She also has a large hematoma and had some bleeding from the incision site. This bleeding has stopped and new Mepilex dressing applied. Hematoma is not getting larger. Will put patient on extended antibiotics to decrease infection risk. She had extensive surgery due to previous contracture. She would benefit from acute rehab. She is a dislocation risk given the extensive surgery and repair of the pectoralis and deltoid muscles. Okay for discharge to rehab once medically cleared. Ortho instructions: D/C to rehab Xray in 3 weeks with follow up in office. Appointment already scheduled. Wound Care: Remove Mepilex dressing at 7 days post op unless watertight seal is broken. Remove steristrips at 14 days post op. May shower. No soaking. PT: Patient may remove wrist from immobilizer sling. May wear either the cintron immobilizer or the black sling shot slings. May remove sling for range of motion exercises. Work on range of motion of the fingers, wrist and elbow. Passive range of motion of the shoulder only. Forward flexion not past 90 degrees. External rotation not passed neutral. (Patient had extensive surgery due to previous contracture. Repair of the pectoralis and deltoid muscle intra-operatively.) DVT prophylaxis: 81 mg ASA twice a day for 2 weeks. Pain medication: Tylenol. Antibiotic: Keflex 500 mg BID 10 days. Ice intermittently every 20 minutes. No reaching, pulling, pushing her self up with the shoulder. She is a dislocation risk given the extensive surgery. Wear knee high compression sock for 3 weeks to decrease risk of blood clots. No driving. Call office with any questions or concerns. . [facility]. DS: Summary Hospital Course Reason for hospitalization: Outpatient reverse total shoulder. Hospital Course: Patient had some confusion and sundowning post operatively. Also hematoma and some bleeding from the incision site. This has stopped. Extensive surgery. Dislocation risk. Patient would benefit from acute rehab. Status at Discharge Functional status at discharge: independent ambulation Overall status at discharge: patient is progressing back to baseline Time Spent with Patient Time attestation: Total time spent providing and/or coordinating discharge services: Exam Narrative: Overweight elderly 87 y/o female. Resting comfortably in chair. Wearing sling.? Dressing dry and intact with out drainage. Large hematoma. Improvement since yesterday.? Significant swelling in the arm and pectoralis.? Moderate ecchymosis. No erythema.? Range of motion limited due to pain. Calf nontender.? Neurologic status intact. No varicosities. Distal pulses palpable. Discharge Plan Discharge Attending physician on discharge: Mick Goldsmith Consulting providers: Rachael Vickers Discharging Clinician: Janel Stroud Patient Disposition: Inpatient Rehab Facility Activity: may shower Diet: as tolerated and regular Wound Care Instructions: follow printed instructions Discharge Instructions: See green instruction sheets. Ortho instructions: D/C to rehab Xray in 3 weeks with follow up in office. Appointment already scheduled. Wound Care: Remove Mepilex dressing at 7 days post op unless watertight seal is broken. Remove steristrips at 14 days post op. May shower. No soaking. PT: Patient may remove wrist from immobilizer sling. May wear either the cintron immobilizer or the black sling shot slings. May remove sling for range of
== END 2022-08-27 13:20 ==
LOC: ANHSURGERY 13:25 → ANH3MEDSUR 13:25
PROVIDERS: Physician Assistant Surgical; Admitting Provider Orthopaedic Surgery; PCP Family Medicine; Visit Provider Orthopaedic Surgery
PROC: (CPT 23472; principal; 2022-08-25 12:00)
DX: M19.011 Primary osteoarthritis, right shoulder (principal); M24.511 Contracture, right shoulder; Z96.611 Presence of right artificial shoulder joint; I10 Essential (primary) hypertension; L76.32 Postprocedural hematoma of skin and subcutaneous tissue following other procedure; E03.9 Hypothyroidism, unspecified; E78.2 Mixed hyperlipidemia; H91.13 Presbycusis, bilateral; R41.0 Disorientation, unspecified; E66.3 Overweight; Z96.659 Presence of unspecified artificial knee joint; Z68.28 Body mass index [BMI] 28.0-28.9, adult; Z79.1 Long term (current) use of non-steroidal anti-inflammatories (NSAID); Z79.82 Long term (current) use of aspirin; Z79.891 Long term (current) use of opiate analgesic; Z79.899 Other long term (current) drug therapy
CPT/HCPCS: 23472; 36415; 73030; 80048; 85025; 86850; 86900; 86901; 97110; 97116; 97161; 97165; 97530; 97535; A4565; A9270; C1776; G0378; J0171; J0330; J0690; J1100; J1170; J1630; J1885; J2270; J2405; J2704; J2795; J3010; J3370; J7030; J7120

== ENCOUNTER 2023-02-06 10:54 | Outpatient (CLI) | payer MEDICARE, SELFPAY ==
--- NOTE | ~2023-02-06 | CT_ITS ---
EXAMINATION: CT shoulder LT wo con DATE: 02/06/2023 11:28 INDICATION: Left shoulder osteoarthritis for preoperative planning TECHNIQUE: High resolution computed tomography (CT) of the left shoulder was performed without intrav enous contrast. Additional sagittal and coronal reconstructions were performed. Automated exposure co ntrol and iterative reconstruction technique were employed. The dose-length product was 476.62 mGy-cm . COMPARISON: 12/10/2022 FINDINGS: Again seen is advanced left glenohumeral osteoarthritis with remodeling of the articular surfaces wit h subarticular cirrhosis and extensive cystlike changes along both sides of the joint space. Small gl enohumeral joint effusion. Mild osteoarthritis at the left acromioclavicular joint. Moderate fatty at rophy of the subscapularis muscle belly and mild fatty atrophy of the supraspinatus muscle belly whic h could be secondary to chronic rotator cuff tear. Moderate to severe cervical and thoracic spondylos is. There are bridging osteophytes at multiple levels in the thoracic spine consistent with diffuse i diopathic skeletal hyperostosis (DISH). Visualized portion of the left lung is clear with no focal ai rspace opacities, pulmonary edema, pleural effusion or pneumothorax. Small calcified nodule in the le ft lower lobe along with calcified left hilar lymph nodes consistent with old granulomatous disease. Aortic valve calcification. No pathologically enlarged lymphadenopathy at the left axilla or visualiz ed left neck and chest. lymphadenopathy. IMPRESSION: 1. Advanced left glenohumeral osteoarthritis. 2. Moderate fatty atrophy of the left subscapularis muscle belly mild fatty atrophy of the left supra spinatus muscle belly which suggests possibility of chronic rotator cuff tears. Reviewed, dictated and finalized at location A. IMPRESSION: 1. Advanced left glenohumeral osteoarthritis. 2. Moderate fatty atrophy of the left subscapularis muscle belly mild fatty atr ophy of the left supraspinatus muscle belly which suggests possibility of chron ic rotator cuff tears.
== END 2023-02-06 10:55 | disposition home or self-care (01) ==
PROVIDERS: Visit Provider Orthopaedic Surgery
DX: M19.012 Primary osteoarthritis, left shoulder (principal)
CPT/HCPCS: 73200

== ENCOUNTER 2023-04-15 07:57 | Outpatient (CLI) | payer MEDICARE, SELFPAY ==
[2023-04-15 09:24] LABS: Basophils Absolute Auto 0.1 K/mm3 (0.0-0.1); Basophils Percent Auto 0.7 % (0.2-1.2); Eosinophils Absolute Auto 0.3 K/mm3 (0-0.3); Eosinophils Percent Auto 3.7 % (0-4.4); Hemoglobin 11.5 g/dL (12.0-15.0); Immature Granulocyte Absolute 0.03 K/mm3 (0.00-0.031); Immature Granulocyte Percent A 0.4 % (0-0.5); Lymphocytes Absolute Auto 1.36 K/mm3 (0.9-3.2); Lymphocytes Percent Auto 17.7 % (18.3-44.2); Mean Corpuscular HGB Conc 31.1 g/dl (32-36); Mean Corpuscular Hemoglobin 29.9 pg (26-34); Mean Corpuscular Volume 96.4 fl (80-100); Mean Platelet Volume 9.5 fl (7.4-10.4); Monocytes Percent Auto 12.9 % (2.6-8.5); Neutrophils Percent Auto 64.6 % (45.5-73.1); Platelet Count Result 224 k/mm3 (150-375); Red Blood Count 3.84 M/mm3 (4.2-5.4); Red Cell Distribution Width 13.3 % (11.5-14.5); White Blood Count 7.7 K/mm3 (4.5-10.0)
== END 2023-04-15 07:58 | disposition home or self-care (01) ==
LOC: ANHSURGERY 08:05
PROVIDERS: Visit Provider Orthopaedic Surgery
DX: Z01.818 Encounter for other preprocedural examination (principal); M12.812 Other specific arthropathies, not elsewhere classified, left shoulder
CPT/HCPCS: 36415; 85025; 86850; 86900; 86901; 87081

== ENCOUNTER 2023-04-28 01:16 | Day surgery (SDC) | payer MEDICARE, SELFPAY ==
[2023-04-15 08:11] VITALS: BMI 29.3
--- NOTE | 2023-04-15 08:44 | PC.NURSE ---
Report to the Outpatient Waiting Room, entrance under the green pavilion located off [facility], at time ___1030____ on date __04/28/23 . Planned Procedure Time: __1230 . Time changes happen often and if your time is changed the preop area will call you the afternoon before. - You and your visitor will be asked to self-screen and do not enter if you have any COVID symptoms. - A mask is optional within the hospital at this time. Patients may have clear liquids (water, carbonated beverages, clear teas, apple juice) until 3 hours prior to surgery( 9:30 am) with a maximum of 20 ounces. - No food from midnight until time of surgery Take the following medications with a SIP of water the morning of surgery: __AMLODIPINE,ATENOLOL,LEVOTHYROXINE DO NOT STOP ANY OF YOUR OTHER PRESCRIPTION MEDICATIONS PRIOR TO SURGERY ?EXCEPT THE FOLLOWING Medications to discontinue per physician HOLD ALL VITAMINS 3 DAYS PRE OP. LAST DOSE 04/24/23 MAY TAKE TYLENOL IF NEEDED FOR PAIN Please no make-up, nail romansh, hairspray, perfume, deodorant, or body powder the day of surgery. No jewelry (including any body piercings) or valuables the day of surgery, leave them at home. Please take a shower or bath the night before, or the morning of, surgery with an antibacterial soap. Wear comfortable, loose fitting clothing. Children are encouraged to wear pajamas. - Jewelry must be removed prior to entering the operating room. Rings and piercings that are not removed may be cut off. - The hospital will not accept responsibility for valuables. - Please leave all valuables, including medications, at home the day of surgery. If you are going home after surgery, a licensed tow driver must drive you home. - NO public transportation without another adult if you receive anesthesia. - We recommend that an adult stay with you for 24 hours following discharge. - We also recommend that you do not drive, make important decision, drink alcoholic beverages, or take any drugs that were not prescribed by your health care provider for at least 24 hours after your discharge time. Follow any additional instructions given to you from your surgeon. If you or anyone in your household have experienced Covid symptoms in the past week, please notify your surgeon or the nurse liaison at the phone number below for possible testing. VERBAL AND WRITTEN instructions given to __PATIENT AND DAUGHTER MC and asked if any additional questions and then verbalized understanding. Patient advised to call surgeon office or pre surgery nurse liaison [phone] if any additional questions.
[2023-04-15 09:07] VITALS: BP 126/51; PULSE 57; RESP 18; TEMP 36.6; O2SAT 99
[2023-04-28] VITALS (17 sets, daily range): BP systolic 121–204; BP diastolic 35–74; PULSE 60–87; RESP 13–22; TEMP 35.9–37.3; O2SAT 93–100
--- NOTE | ~2023-04-28 | XR_ITS ---
XR shoulder LT min 2V DATE: 04/28/2023 14:18 INDICATION: Left reverse total shoulder joint replacement TECHNIQUE: Postoperative views of left shoulder COMPARISON: None FINDINGS: Reverse left total glenohumeral joint arthroplasty is noted with normal alignment. There is diffuse osteopenia. No fracture or dislocation is detected. IMPRESSION: Left glenohumeral arthroplasty Osteopenia Reviewed, dictated and finalized at location L. ER STRIPPER MACHINE
[2023-04-28] MEDS: LACTATED RINGERS 1,000 ML 30 ML IV CONT ×2 (10:00→13:59)
--- NOTE | 2023-04-28 11:00 | WPDHPUPDATE1 ---
History and Physical Update Update Date/Time: 04/28/23 11:00 History and Physical has been reviewed, including an updated exam of the patient. There are NO changes in the patient's condition. Risks, benefits, and alternatives have been discussed and questions answered. Patient agrees to proceed with procedure.
--- NOTE | 2023-04-28 11:02 | WPDANESEPPF ---
Anes - Initial Pre Proc Eval Procedure: Operation Date: 04/28/23 11:30 Proposed Procedures p Left Reverse Total Shoulder Arthroplasty - Mick Goldsmith MD Date/Time: 04/28/23 11:02 Surgeon: Mick Goldsmith MD Pre Op Diagnosis: left rotator cuf arthopathy Patient Data Age: 88 Gender: F Height: 1.5 m Weight: 65.2 kg Last Vital Signs Temp 37.3 C 04/28/23 09:36 Pulse 60 04/28/23 09:36 Resp 20 04/28/23 09:36 BP 149/35 H 04/28/23 09:36 Pulse Ox 100 04/28/23 09:36 O2 Del Method Room Air 04/28/23 09:36 Allergies Allergy/AdvReac Type Severity Reaction Status Date / Time No Known Allergies Allergy Verified 04/28/23 09:38 Home Medications Medication Instructions Recorded Confirmed Type vitamins A,C,[id number] 4,296 1 cap PO BID 07/28/22 04/28/23 History mcg-226 mg-90 mg capsule (PreserVision AREDS) cholecalciferol (vitamin D3) 25 See Rx Instructions .Route 10/03/22 04/28/23 Rx mcg (1,000 unit) tablet (Vitamin .COMPLEX #8 tabs D3) levothyroxine 25 mcg tablet 25 mcg PO QAM #104 tabs 12/11/22 04/28/23 Rx losartan 50 mg tablet See Rx Instructions .Route 01/05/23 04/28/23 Rx .COMPLEX #90 tabs simvastatin 20 mg tablet See Rx Instructions .Route 01/05/23 04/28/23 Rx .COMPLEX #90 tabs amlodipine 5 mg tablet (Norvasc) 5 mg PO DAILY #100 tabs 01/15/23 04/28/23 Rx atenolol 25 mg tablet See Rx Instructions .Route 02/25/23 04/28/23 Rx .COMPLEX #100 tabs acetaminophen 500 mg capsule 1,000 mg PO Q6H PRN Pain 04/15/23 04/28/23 History Patient hx anesthesia problems: other (confusion) Family hx anesthesia problems: none Results Review: All pre-operative results and documents have been reviewed as part of the pre-operative evaluation. 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 deficit Deep vein thrombosis (DVT) prophylaxis prescribed at discharge DJD of right shoulder VALDOVINOS (dyspnea on exertion) Fall (on)(from) sidewalk curb, initial encounter Frozen shoulder Hearing loss Heart murmur History of chronic hypertension History of hyperlipidemia History of hypothyroidism Hyperlipidemia Hyponatremia Hypothyroidism determined by thyroid function test Hypothyroidism determined by thyroid function test Mixed hyperlipidemia Preop cardiovascular exam 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 She has 4 children. 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 Code status full code Smoking status: Never smoker Second hand tobacco smoke exposure: No Alcohol intake: never Substance use: never Substance use type: does not use Lack of Transportation: No Lack of Food: Never True Current Housing: I Have Housing Concerned About Future Housing: No Difficulty Paying Gas/Electric Bills: No Difficulty Paying for Meds: No Currently Unemployed: No Education: High School Diploma/GED Difficulty w/ Childcare or Family Care: No Living arrangements: assisted
[2023-04-28] MEDS: TRANEXAMIC ACID 1,000MG/ISO100 1,000 MG/100 ML BAG 200 MG IVPB (11:06)
[2023-04-28] MEDS: ceFAZolin 2 GM/D5W 50 ML 2 GM/50 ML BAG IVPB (11:12)
[2023-04-28] MEDS: VANCOMYCIN HCL 1,000 MG VIAL 1000 MG TOPICAL (12:06)
--- NOTE | 2023-04-28 13:53 | W.PM.PROC2 ---
Procedure Note - Detailed Date of Procedure 04/28/23 Pre-op Diagnosis left rotator cuf arthopathy Post-op Diagnosis Same Procedure Performed Reverse total shoulder arthroplasty, left. Surgeon Mick Goldsmith MD Anesthesia General Findings Advanced disease with bone erosion and marked contracture. Partial pectoralis and coracobrachialis releases required. Repair performed. Description of Procedure The patient was given an interscalene block in the preoperative area. Preoperative antibiotics were given. The patient was transferred to the operating room and a general anesthetic was administered. The beach chair position was used at 45 degrees. All bony prominences were padded. The head was carefully stabilized on the [facility] repairer cylinder heads. A sterile prep and drape was performed in the usual manner with ChloraPrep. A longitudinal incision was created at the anterior shoulder just lateral to the deltopectoral interval. Hydrogen peroxide was placed on the incision and then rinsed after one minute. Careful dissection was performed to expose the interval and protect the cephalic vein. The vein was retracted medially. The upper border of the pectoralis was released. Anterior circumflex vessel branches were suture ligated. The biceps was released. A subscapularis peel was performed. The inferior capsule was released, exposing the humeral head. Osteophytes were removed. Care was taken to stay on bone to protect the axillary nerve. The anatomic head cut was taken with the oscillating saw. The guide pin was placed, central drilling performed, and the broach trial inserted. The neck anteversion and inclination were carefully assessed. The cut protector was placed, and attention was turned to the glenoid. Retractors were placed. Releases were carried out for exposure. The subscapularis was mobilized, the inferior capsule and long head of triceps released, and the superior and middle glenohumeral ligaments released as well. Labral tissue was resected as needed. The posterior capsule was excised. The sizing template was used to assess the baseplate position low on the glenoid. A guide pin was placed. Minimal reaming was used to accomplish a flat surface without violating the subchondral bone. Version was corrected according to preoperative templating. 10 degree inferior and slight posterior correction and use of the 5 degree augment. The boss was drilled, and the real component was impacted into position. Supplemental locking screws were placed centrally, superiorly, and inferiorly. The glenosphere was impacted into the taper. The proximal humerus was reamed for the inset component. The humeral components were trialed. The real humeral stem, tray, and insert were impacted into position. The shoulder was copiously irrigated periodically with pulsatile lavage. The shoulder was reduced and stability confirmed. 1 gram of Vancomycin powder was placed in the joint. The pectoralis tendon and coracobrachialis were repaired. The deltopectoral space was reapproximated with number 2-0 Vicryl. The remaining tissue was closed with 2-0 strata fix and 3-0 strata fix running suture and steri-strips. A sterile occlusive dressing and shoulder immobilizer were placed. The patient was transferred to the recovery room. [employer]plants Shoulder [employer] reverse TSA size 0 stem. +0 polyethylene insert. 5 degree augmented baseplate. 33+3 mm glenosphere. Estimated Blood Loss 200 Drains No Pathology None sent Complications No immediate complications Condition Stable Disposition PACU [facility] Billing Surgery - Charge Forward: Surgery Billing
[2023-04-28] MEDS: fentaNYL CITRATE INJ (*CRX) 100 MCG/2 ML VIAL 25 MCG IV PUSH ×6 (14:05→15:47)
[2023-04-28] MEDS: LABETALOL HCL INJ 100 MG/20 ML VIAL IV PUSH (14:35)
--- NOTE | 2023-04-28 16:14 | ADMGEN ---
This patient, Nuria Robison, was admitted to Medical Room 258-01. Patient/family oriented to hospital policies and general routines including ID bracelet, bed and alarms, visiting hours, pain management, procedures, bathroom and other care routines, personal items, smoking policy, room service/diet, and visiting hours. Information on how to activate the Rapid Response Team has been discussed. Patient/Family are encouraged to report perceived risks to care and to ask questions if they do not understand what they are told or what they should do.
[2023-04-28] MEDS: oxyCODONE HCL (*CRX) 5 MG TAB IR 10 MG PO (16:22)
[2023-04-28] MEDS: SENNA/DOCUSATE SODIUM TABLET 2 TAB PO (16:22)
[2023-04-28] MEDS: CHOLECALCIFEROL 1,000 UNITS TABLET 1000 UNITS PO (16:23)
[2023-04-28] MEDS: OPTI-GEN TAB 1 TABLET PO (16:23)
[2023-04-28] MEDS: ceFAZolin 1 GM/NS 50 ML 1 GM/50 ML BAG IVPB (20:09)
[2023-04-28] MEDS: LOSARTAN POTASSIUM 50 MG TABLET PO (20:10)
[2023-04-29 00:28] VITALS: BP 146/57; PULSE 58; RESP 20; TEMP 37; O2SAT 97
[2023-04-29] MEDS: ACETAMINOPHEN 500 MG TABLET 1000 MG PO ×3 (02:41→16:54)
[2023-04-29] MEDS: ceFAZolin 1 GM/NS 50 ML 1 GM/50 ML BAG IVPB ×2 (02:47→11:08)
[2023-04-29 05:38] VITALS: BP 163/53; PULSE 74; RESP 20; TEMP 36.4; O2SAT 99
[2023-04-29 05:55] LABS: Basophils Percent Auto 0.3 % (0.2-1.2); Eosinophils Percent Auto 0.1 % (0-4.4); Hematocrit 28.7 % (37.0-47.0); Hemoglobin 9.2 g/dL (12.0-15.0); Immature Granulocyte Absolute 0.06 K/mm3 (0.00-0.031); Immature Granulocyte Percent A 0.4 % (0-0.5); Lymphocytes Absolute Auto 1.59 K/mm3 (0.9-3.2); Lymphocytes Percent Auto 11.6 % (18.3-44.2); Mean Corpuscular HGB Conc 32.1 g/dl (32-36); Mean Corpuscular Hemoglobin 30.6 pg (26-34); Mean Corpuscular Volume 95.3 fl (80-100); Mean Platelet Volume 10.6 fl (7.4-10.4); Monocytes Absolute Auto 2.3 K/mm3 (0.1-0.6); Monocytes Percent Auto 16.8 % (2.6-8.5); Neutrophils Absolute Auto 9.7 K/mm3 (1.3-6.7); Neutrophils Percent Auto 70.8 % (45.5-73.1); Platelet Count Result 196 k/mm3 (150-375); Red Blood Count 3.01 M/mm3 (4.2-5.4); Red Cell Distribution Width 13.2 % (11.5-14.5); White Blood Count 13.7 K/mm3 (4.5-10.0)
[2023-04-29 06:08] LABS: Anion Gap 2 mmol/L (8-16); Blood Urea Nitrogen 23 mg/dL (7-17); Calcium 8.1 mg/dL (8.4-10.2); Carbon Dioxide 30 mmol/L (22-30); Chloride 100 mmol/L (98-107); Estimated Glomerular Filt Rate > 60; Glucose 116 mg/dL (65-110); Potassium 3.9 mmol/L (3.4-5.0); Sodium 132 mmol/L (137-145)
[2023-04-29] MEDS: LEVOTHYROXINE SODIUM 25 MCG TABLET PO (06:58)
[2023-04-29] MEDS: oxyCODONE HCL (*CRX) 5 MG TAB IR PO (07:03)
[2023-04-29 09:30] VITALS: BP 138/73; PULSE 76; O2SAT 97
[2023-04-29] MEDS: OPTI-GEN TAB 1 TABLET PO (09:36)
[2023-04-29] MEDS: SIMVASTATIN 20 MG TABLET PO (09:36)
[2023-04-29 09:38] VITALS: PULSE 76
[2023-04-29] MEDS: atenoloL 25 MG TABLET PO (09:38)
[2023-04-29] MEDS: SENNA/DOCUSATE SODIUM TABLET 2 TAB PO (09:39)
[2023-04-29] MEDS: amLODIPine BESYLATE 5 MG TABLET PO (09:39)
[2023-04-29] MEDS: polyethylene glycoL 3350 17 GM POWD.PACK PO (09:40)
--- NOTE | 2023-04-29 10:18 | P.PNAN_ITS ---
Anes - Prog Note Post-Op Date/Time: 04/29/23 10:18 Cardiovascular status: normal Respiratory status: normal Airway patency: baseline Mental status: baseline Post-Op hydration status: normal Vital Signs: Last Vital Signs Temp 36.4 C L 04/29/23 05:38 Pulse 76 04/29/23 09:38 Resp 20 04/29/23 05:38 BP 138/73 04/29/23 09:30 Pulse Ox 97 04/29/23 09:30 O2 Del Method Room Air 04/29/23 08:05 O2 Flow Rate 1 04/28/23 16:37 Pain Score (VAS): 3 I/O: Intake & Output 04/28/23 04/29/23 04/29/23 23:59 07:59 15:59 Intake Total 290 50 240 Balance 290 50 240 Laboratory Tests 04/29/23 05:22 04/29/23 05:22 04/29/23 05:22 WBC 13.7 H RBC 3.01 L Hgb 9.2 L Hct 28.7 L MCV 95.3 MCH 30.6 MCHC 32.1 RDW 13.2 Plt Count 196 MPV 10.6 H Immature Gran % (Auto) 0.4 Neut % (Auto) 70.8 Lymph % (Auto) 11.6 L [place] % (Auto) 16.8 H Eos % (Auto) 0.1 Baso % (Auto) 0.3 Lymph # (Auto) 1.59 [place] # (Auto) 2.3 H Eos # (Auto) 0.0 Baso # (Auto) 0.0 Abs Immat Gran (auto) 0.06 H Absolute Neuts (auto) 9.7 H Absolute Nucleated RBC 0.0 Nucleated RBC % 0.0 Sodium 132 L Potassium 3.9 Chloride 100 Carbon Dioxide 30 Anion Gap 2 L BUN 23 H Creatinine 0.80 Estim Creat Clear Calc Not Reportable Estimated GFR > 60 Glucose 116 H Calcium 8.1 L Post-procedural complaints: none Patient Feedback: Patient satisfied with anesthetic care.
--- NOTE | 2023-04-29 13:21 | PM.IMCN ---
Assessment and Plan Assessment and plan (1) Orthopedic aftercare: Code(s): Z47.89 - Encounter for other orthopedic aftercare Status: Acute Assessment and Plan: In setting of acute left rotator cuff arthroplasty Further care related to surgery to be managed by Orthopedics. (2) Acquired hypothyroidism: Code(s): E03.9 - Hypothyroidism, unspecified Status: Acute Assessment and Plan: Continue Levothyroxine 25 mcg daily (3) Mixed hyperlipidemia: Code(s): E78.2 - Mixed hyperlipidemia Status: Acute Assessment and Plan: Continue Simvastatin 20 mg daily at Heart Healthy Diet (4) Primary hypertension: Code(s): I10 - Essential (primary) hypertension Status: Acute Assessment and Plan: Continue to monitor BP. Continue home medications of Atenolol 25 mg daily, Losartan 50 mg daily, and Amlodipine 5 mg daily. (5) Chronic pruritus: Code(s): L29.9 - Pruritus, unspecified Status: Chronic Assessment and Plan: No appreciable rashes identified. Benadryl 50 mg Q6 hrs prn ordered Triamcinolone cream ordered prn as well (6) Aortic stenosis: Qualifiers: Cardiac valve disease etiology: nonrheumatic Qualified Code(s): I35.0 - Nonrheumatic aortic (valve) stenosis Code(s): I35.0 - Nonrheumatic aortic (valve) stenosis Status: Chronic Assessment and Plan: Audible on physical exam. Asymptomatic Monitor overall status, if any decompensation, consider ECHO. HPI Date of Consult Consult date: 04/29/23 Requesting Physician: Mick Goldsmith MD Primary Care Provider: Ratna Perry Consult Narrative Reason for consult: Medical management of chronic conditions Narrative: Nuria Robison is a 88 year old female with Has medical history significant anemia, hypothyroidism, aortic stenosis, hypertension, previous DVT dyspnea on exertion, hyperlipidemia and left rotator cuff injury who underwent an elective reverse left total shoulder arthroplasty on April 28, [address] Goldsmith. Hospitalist service is being consulted for medical management of chronic health conditions while she is hospitalized. Today on exam pt has complaints of pain in her operative shoulder that she says is making it difficult to get any rest. In addition she complains of itching in various body regions all over, but states it has been chronic since even before the surgery and she is applying Hydrocortisone cream topically at home with some relief in the itching. She has no acute complaints of CP, dyspnea, N/V/D/constipation, urinary complaints or other acute issues. 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 deficit Deep vein thrombosis (DVT) prophylaxis prescribed at discharge DJD of right shoulder VALDOVINOS (dyspnea on exertion) Fall (on)(from) sidewalk curb, initial encounter Frozen shoulder Hearing loss Heart murmur History of chronic hypertension History of hyperlipidemia History of hypothyroidism Hyperlipidemia Hyponatremia Hypothyroidism determined by thyroid function test Hypothyroidism determined by thyroid function test Mixed hyperlipidemia Preop cardiovascular exam Presbycusis of both ears Presbycusis of both ears Primary hypertension Prophylactic antibiotic Radial styloid fracture Right wrist injury Traumatic ecchymosis of face Surgical History Surgical History History of cataract extraction History of knee replacement (~2011) around 2014 Hx of tonsillect
== END 2023-04-29 16:55 | disposition home or self-care (01) ==
LOC: ANHSURGERY 09:25 → ANH3MEDSUR 15:58 → ANH2MED 04-29 08:02
PROVIDERS: Visit Provider Orthopaedic Surgery
PROC: (CPT 23472; principal; 2023-04-28 11:30)
DX: M12.812 Other specific arthropathies, not elsewhere classified, left shoulder (principal); L29.9 Pruritus, unspecified; E78.2 Mixed hyperlipidemia; I35.0 Nonrheumatic aortic (valve) stenosis; E03.9 Hypothyroidism, unspecified; I10 Essential (primary) hypertension; Z86.718 Personal history of other venous thrombosis and embolism
CPT/HCPCS: 23472; 36415; 73030; 80048; 85025; 97110; 97161; 97166; 97530; 97535; A4565; A9270; C1776; J0171; J0330; J0690; J1100; J1885; J2250; J2270; J2405; J2704; J2795; J3010; J3370; J7120

== ENCOUNTER 2023-08-27 16:05 | Emergency (ER) | payer MEDICARE, SELFPAY ==
--- NOTE | ~2023-08-27 | CT_ITS ---
EXAMINATION: 1. CT facial & cervical spine wo DATE: 08/27/2023 17:28 INDICATION: Facial injury post fall with left periorbital swelling and bruising TECHNIQUE: 1. Computed tomography (CT) of the maxillofacial region and of the cervical spine were performed with out intravenous contrast. Sagittal and coronal reconstructions of both regions were obtained. Automat ed exposure control and iterative reconstruction technique were employed. The dose-length product was 334.85 mGy-cm. COMPARISON: 08/29/2019 FINDINGS: Maxillofacial CT: There is prominent left periorbital soft tissue swelling to a prior to a prominent anterior frontal s calp hematoma. Tear there is prominent soft tissue gas both within the left orbit, in the preseptal s oft tissues and extending caudally into the left malar region and remaining vascular compartment baudilio g the temporalis muscle. There is a follow-up fracture of the lamina. Recent along the medial wall of the left orbit which likely accounts for the presence of a soft tissue gas within the left orbit. No other maxillofacial fractures identified. Specifically the nasal bones, zygomatic arches, mandible a nd remaining hopkins of the orbits and paranasal sinuses are intact. There is unchanged mild leftward b owing of the nasal septum. There is persistent prominent mucosal thickening in the left-sided paranas al sinuses with near complete opacification of the left frontal sinus, opacification of several the l eft ethmoid air cells and partial desiccation of the left maxillary sinus. There are thickened sclero tic hopkins to the left maxillary sinus consistent with chronic sinusitis. Mastoid air cells and middle ear cavities are clear. 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 Dental disease and multiple dental restorations. Cervical spine CT: Severe osteoarthritis at the atlantoaxial articulation. One-2 mm anterolisthesis C4 on C5. Mild cervi pawel dextrocurvature. Vertebral body heights are normal. No acute fracture of cervical spine. Severe d isc height loss with degenerative endplate changes at C5-C6 and third through T3-T4. Moderate disc he ight loss at C4-C5 and T4-T5 and mild disc height loss at C2-C3 and C3-C4. Mild central canal stenosi s at C4-C5, C5-C6 and C6-C7. There is multilevel moderate to severe cervical facet and uncovertebral osteoarthritis. There is solid osseous fusion across the left C4-C5 facet joint. This contributes to moderate neural foraminal stenosis on the left at C3-C4 and C4-C5 with mild stenosis at the remaining cervical neural foramina. Atherosclerotic calcific lesions at the bilateral carotid bulbs. There is some soft tissue gas tracking caudally into the left anterior neck along the inferior margin of the s ubmandibular gland and anterior margin of the sternocleidomastoid muscle. Multinodular goiter with a few likely benign subcentimeter thyroid nodules. Cervical soft tissues are otherwise unremarkable. Vi sualized upper lungs are clear. IMPRESSION: 1. Blowout fracture along the medial wall of the left orbit/lamina preparation with likely secondary left intraorbital and periorbital soft tissue gas. 2. Severe cervical spondylosis with no acute osseous abnormality. 3. Prominent chronic left frontal, maxillary and ethmoid sinus disease. Reviewed, dictated and finalized at location A.
--- NOTE | ~2023-08-27 | CT_ITS ---
EXAMINATION: CT brain wo con DATE: 08/27/2023 17:28 INDICATION: Fall with head/facial injury. TECHNIQUE: Computed tomography (CT) of the head was performed without intravenous contrast. Sagittal and coronal reconstructions were performed. The mA was adjusted according to patient size. Iterative reconstruction technique was employed. The dose-length product was 756.67 mGy-cm. COMPARISON: head CT dated 08/29/2019 FINDINGS: Prominent left periorbital subcutaneous hematoma likely laceration with soft tissue gas both within a nd surrounding the left orbit. See separate maxillofacial CT report for further detail. No calvarial fracture. No acute intracranial hemorrhage, acute infarction or abnormal extra axial fluid collection . There is mild scattered white matter hypoattenuation consistent with chronic small vessel ischemic disease. Symmetric prominence of the sulci and ventricles consistent with mild age-appropriate diffus e cerebral volume loss. No mass/mass effect. Mastoid air cells and middle ear cavities are clear. IMPRESSION: 1. No calvarial fracture or acute intracranial process. 2. Age-related changes including mild diffuse volume loss and mild scattered white matter hypoattenua tion consistent with chronic small vessel ischemic disease. 3. Prominent left periorbital subcutaneous hematoma and soft tissue gas. See separate maxillofacial C T report for further detail. Reviewed, dictated and finalized at location A. IMPRESSION: 1. No calvarial fracture or acute intracranial process. 2. Age-related changes including mild diffuse volume loss and mild scattered wh ite matter hypoattenuation consistent with chronic small vessel ischemic diseas e. 3. Prominent left periorbital subcutaneous hematoma and soft tissue gas. See se [facility] maxillofacial [facility] report for further detail.
[2023-08-27 16:21] VITALS: BP 211/75; PULSE 71; RESP 18; TEMP 36.2; O2SAT 100
--- NOTE | 2023-08-27 16:25 | ED.GENADULT ---
HPI - General Adult General Chief complaint: Trauma <Joana Roman August, INDUCTION MACHINE SETTER - Last Filed: 08/27/23 16:30> Stated complaint: fall <Joana Roman August, INDUCTION MACHINE SETTER - Last Filed: 08/27/23 16:30> Time Seen by Provider: 08/27/23 16:26 <Joana Roman August, INDUCTION MACHINE SETTER - Last Filed: 08/27/23 16:30> Focused HPI: Nuria Robison is an 88 y/o female who had a mechanical ground level fell falling on her face while wearing glasses. Left eye swollen shut/ able to pry open EOM intact, Denies LOC/ fall was at about 1300 , ambulatory after fall and while here. denies pain to hips/knees back. GENERAL: Well-appearing, well-nourished, and in no acute distress. HEAD: Normocephalic, Significant swelling to left eye/ deformity to nasal bridge and ecchymosis CHEST: Clear to auscultation. ?No respiratory distress. HEART: Regular rate and rhythm.? NEURO: ?Alert and oriented x3. Patient screened in triage and initial orders placed.? ?Additional care and disposition to be based upon?diagnostic testing and treatment. <Joana Roman August, INDUCTION MACHINE SETTER - Last Filed: 08/27/23 16:30> History of Present Illness HPI narrative: As per MSE. Pt suffered ground level fall and landed on face while wearing her glasses. Pt denies LOC or neck pain or numbness or weakness. Pt left eye swollen shut. <Og Foster III, DO - Last Filed: 08/27/23 22:19> Related Data Home medications: Home Medications Medication Instructions Recorded Confirmed vitamins A,C,O-voie-kkvtxw 4,296 1 cap PO BID 07/28/22 08/25/23 mcg-226 mg-90 mg capsule (PreserVision AREDS) acetaminophen 500 mg capsule 1,000 mg PO Q6H PRN Pain 04/15/23 08/25/23 <Joana Roman August, INDUCTION MACHINE SETTER - Last Filed: 08/27/23 16:30> Allergies/adverse reactions: Allergies Allergy/AdvReac Type Severity Reaction Status Date / Time No Known Allergies Allergy Verified 08/25/23 10:08 <Joana Roman August, INDUCTION MACHINE SETTER - Last Filed: 08/27/23 16:30> Review of Systems Review of Systems: All systems reviewed & are unremarkable except as noted in HPI and below <Og Foster III, DO - Last Filed: 08/27/23 22:19> [facility] Past Medical History Medical History: Medical History Acquired hypothyroidism Acute pain Advanced directives, counseling/discussion Aortic stenosis Arthritis of knee left Benign hypertension Chronic pruritus Complaint of memory disorder without observed objective memory deficit Deep vein thrombosis (DVT) prophylaxis prescribed at discharge DJD of right shoulder VALDOVINOS (dyspnea on exertion) Fall (on)(from) sidewalk curb, initial encounter Frozen shoulder Hearing loss Heart murmur History of chronic hypertension History of hyperlipidemia History of hypothyroidism Hyperlipidemia Hyponatremia Hypothyroidism determined by thyroid function test Hypothyroidism determined by thyroid function test Mixed hyperlipidemia Preop cardiovascular exam Presbycusis of both ears Presbycusis of both ears Primary hypertension Prophylactic antibiotic Radial styloid fracture Right wrist injury Traumatic ecchymosis of face <Joana Bahena, INDUCTION MACHINE SETTER - Last Filed: 08/27/23 16:30> Surgical History Surgical History: Surgical History History of cataract extraction History of knee replacement (~2011) around 2014 Hx of tonsillectomy Status post reverse total arthroplasty of right shoulder (~08/25/22) <Joana Bahena, INDUCTION MACHINE SETTER - Last Filed: 08/27/23 16:30> Family History Family History: Family History Mother Cerebrovascular accident Other Diabetes mellitus Family history of obesity <Joana Roman August, INDUCTION MACHINE SETTER - Last Filed: 08/27/23 16:30> Social History Social History: Social History Social History: She is and lives home alone. She has 4 children. She is retired from [employer] an
[2023-08-27 17:00] LABS: Basophils Percent Auto 0.4 % (0.2-1.2); Eosinophils Absolute Auto 0.1 K/mm3 (0-0.3); Eosinophils Percent Auto 1.1 % (0-4.4); Hematocrit 38.7 % (37.0-47.0); Hemoglobin 12.4 g/dL (12.0-15.0); Immature Granulocyte Absolute 0.05 K/mm3 (0.00-0.031); Immature Granulocyte Percent A 0.5 % (0-0.5); Lymphocytes Absolute Auto 1.29 K/mm3 (0.9-3.2); Lymphocytes Percent Auto 13.3 % (18.3-44.2); Mean Corpuscular Hemoglobin 28.3 pg (26-34); Mean Corpuscular Volume 88.4 fl (80-100); Mean Platelet Volume 11.2 fl (7.4-10.4); Monocytes Absolute Auto 1.1 K/mm3 (0.1-0.6); Neutrophils Absolute Auto 7.1 K/mm3 (1.3-6.7); Neutrophils Percent Auto 73.7 % (45.5-73.1); Platelet Count Result 242 k/mm3 (150-375); Red Blood Count 4.38 M/mm3 (4.2-5.4); Red Cell Distribution Width 16.3 % (11.5-14.5); White Blood Count 9.7 K/mm3 (4.5-10.0)
[2023-08-27 17:11] LABS: Alanine Aminotransferase 34 U/L (6-35); Albumin Level 4.7 g/dL (3.5-5.1); Alkaline Phosphatase 155 U/L (38-126); Anion Gap 7 mmol/L (4-12); Aspartate Amino Transferase 36 U/L (14-36); Bilirubin,Total 0.5 mg/dL (0.2-1.3); Blood Urea Nitrogen 26 mg/dL (7-17); Calcium 9.1 mg/dL (8.4-10.2); Carbon Dioxide 27 mmol/L (22-30); Chloride 101 mmol/L (98-107); Estimated CRCL calculation 38 ml/min; Estimated Glomerular Filt Rate > 60; Glucose 128 mg/dL (65-110); Potassium 4.1 mmol/L (3.4-5.0); Sodium 135 mmol/L (137-145)
[2023-08-27 17:13] LABS: Prothrombin Time 13.8 Seconds (11.1-14.7)
[2023-08-27 17:14] LABS: Partial Thromboplastin Time 29.5 Seconds (22.3-36.8)
[2023-08-27 19:09] VITALS: BP 181/80; PULSE 74; RESP 18; O2SAT 97
== END 2023-08-27 19:10 | disposition home or self-care (01) ==
PROVIDERS: Nurse Practitioner Family; Emergency Provider Emergency Medicine; PCP Family Medicine
DX: S02.832A Fracture of medial orbital wall, left side, initial encounter for closed fracture (principal); I35.0 Nonrheumatic aortic (valve) stenosis; I10 Essential (primary) hypertension; E03.9 Hypothyroidism, unspecified; E78.2 Mixed hyperlipidemia; M17.12 Unilateral primary osteoarthritis, left knee; M19.011 Primary osteoarthritis, right shoulder; Z86.718 Personal history of other venous thrombosis and embolism; Z96.659 Presence of unspecified artificial knee joint; Z96.611 Presence of right artificial shoulder joint; Z98.49 Cataract extraction status, unspecified eye; M47.812 Spondylosis without myelopathy or radiculopathy, cervical region; J32.1 Chronic frontal sinusitis; J32.0 Chronic maxillary sinusitis; J32.2 Chronic ethmoidal sinusitis; W18.30XA Fall on same level, unspecified, initial encounter
CPT/HCPCS: 36415; 70450; 70486; 72125; 80053; 85025; 85610; 85730; 99284; L0140

== ENCOUNTER 2024-04-08 16:03 | Emergency (ER) | payer MEDICARE, SELFPAY ==
[2024-04-08 16:40] VITALS: BP 124/69; PULSE 74; RESP 18; TEMP 36.6; O2SAT 99
--- NOTE | 2024-04-08 20:56 | ED.EXTPRO ---
HPI - Extremity Problem General Chief complaint: Extremity Problem,Nontraumatic Stated complaint: Left Leg Pain Time Seen by Provider: 04/08/24 17:44 Source: patient, family (Daughters) and RN notes reviewed Mode of arrival: ambulatory Limitations: no limitations History of Present Illness HPI Narrative: Patient presents today from her assisted living center with complaints of pain to the left lateral upper leg times 10 days. Reports pain initially started after she had been walking quite a bit. States she likes to walk approximately 1 mile per day. She walked 1 mi a couple of days ago, then when her daughters arrived to pick her she had some increased pain in her leg and was limping. They wanted to bring her in for evaluation today. She takes Tylenol for this discomfort, which completely resolved her pain. Denies numbness or tingling. Daughters believe she may have broken her hip. Patient denies any fall or traumatic injury. Patient has no history of dementia or Alzheimer's. Related Data Home Medications ?Medication ?Instructions ?Recorded ?Confirmed ?Last Taken ?Type vitamins A,C,U-xcah-btcexn 4,296 1 cap PO BID 07/28/22 04/08/24 04/24/23 History mcg-226 mg-90 mg capsule (PreserVision AREDS) acetaminophen 500 mg capsule 1,000 mg PO Q6H PRN Pain 04/15/23 04/08/24 04/28/23 06:00 History diphenhydramine HCl 25 mg capsule 25 mg PO HS 04/08/24 04/08/24 Unknown History (Benadryl) Allergies Allergy/AdvReac Type Severity Reaction Status Date / Time No Known Allergies Allergy Verified 04/08/24 16:34 Review of Systems Review of Systems: CONSTITUTIONAL: Denies body aches, fever, chills, or sweats. EYES: Denies visual changes, redness, or discharge. ENT: Denies rhinorrhea, congestion, sore throat, or otalgia. CARDIOVASCULAR: Denies chest pain, palpitations, or edema. RESPIRATORY: Denies cough or dyspnea. GASTROINTESTINAL: Denies abdominal pain, nausea, vomiting, or diarrhea. GENITOURINARY: Denies dysuria or hematuria. SKIN: Denies rash, itching, or wounds. MUSCULOSKELETAL: Left thigh pain NEUROLOGIC: Denies headache, numbness, tingling, or weakness. PSYCH: Denies depression or anxiety. 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 Frozen shoulder Advanced directives, counseling/discussion Hearing loss Radial styloid fracture Right wrist injury Fall (on)(from) sidewalk curb, initial encounter Hyponatremia Chronic pruritus Arthritis of knee left Aortic stenosis Primary hypertension Heart murmur Mixed hyperlipidemia Acquired hypothyroidism Hypothyroidism determined by thyroid function test Presbycusis of both ears Benign hypertension Traumatic ecchymosis of face History of hyperlipidemia History of hypothyroidism History of chronic hypertension Surgical History Surgical History History of cataract extraction Status post reverse total arthroplasty of right shoulder (~08/25/22) Hx of tonsillectomy History of knee replacement (~2011) around 2014 Family History Family History Mother Cerebrovascular accident Other Diabetes mellitus Family history of obesity Social History Social History Social History: She is and lives home alone. She has 4 children. 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 Code status full code Smoking status: Never smoker Second hand tobacco smoke exposure: No Alcohol intake: never Substance use: never Substance use type: does not use Do You Feel Safe in your Home?: Yes Lack of Transportation: No Lack of Food: Never True Current Housing: I Have Housing Concerned About Future Housing: No Difficulty Paying Gas/Electric Bills: No Difficulty Paying for Meds: No Currently Unemployed: No Education: High School Diploma/GED Difficulty w/ Childcare or Family Care: No Living arrangements: assisted living Occupation/Education: retired Gender identity (if verbalized by the patient): Female Sexual Orientation (if Verbalized by the Patient): Straight or Heterosexual Spiritual care concerns: No Comments At time of signature, I have reviewed and agree with nursing past medical, surgical, social and family history unless otherwise noted. Please see nursing chart for further information. There is no relevant family history pertinent to the presenting complaint Exam Narrative: GENERAL: Well-appearing, well-nourished, and in no acute distress. HEAD: Normocephalic, atraumatic. EYES: EOMI. No redness or drainage. Conjunctivae normal. ENT: Mucous membranes pink and moist. NECK: Normal AROM. CHEST: No respiratory distress. EXTREMITIES: Patient is favoring her left leg a bit today. She has some tenderness to the left lateral and posterior hip area with some radiation to the lateral knee. The knee is nontender. Knee does not seem to be swollen. Distal sensation intact. Capillary refill normal. Posterior tibial pulse normal. 5/5 Strength BLE. SKIN: Warm, dry, no rash. Capillary refill normal. Normal skin turgor. NEURO: No focal deficits. Alert and oriented x3. Gait steady. PSYCH: Normal affect. No signs of depression or anxiety. Course Course Level of Care: Express Care Visit Vital Signs Vital signs: Vital Signs Temperature 97.9 F 04/08/24 16:40 Pulse Rate 74 04/08/24 16:40 Respiratory Rate 18 04/08/24 16:40 Blood Pressure 124/69 04/08/24 16:40 Pulse Oximetry 99 04/08/24 16:40 Oxygen Delivery Room Air 04/08/24 16:40 Temperature 97.9 F 04/08/24 16:40 Pulse Rate 74 04/08/24 16:40 Respiratory Rate 18 04/08/24 16:40 Blood Pressure 124/69 04/08/24 16:40 Pulse Oximetry 99 04/08/24 16:40 Oxygen Delivery Room Air 04/08/24 16:40 Reviewed MDM - Extremity (Nontraumatic) MDM Narrative Medical decision making narrative: Daughters are concerned that patient may have a fracture. When asked, patient denies any recent fall or trauma to the leg. I asked daughter's if patient has a history of dementia, and they have said no. I then asked if there was any reason to not believe patient when she has expressed that she has not had an injury. Patient's exam seems to be an overuse injury due to her walking. She is very proud that she walks approx 1 mile per day and that she is one of few at her facility that does need to walk with a walker. She has good sensation, strength, and ROM of her leg/hip. I have offered xray if they insist, but patient declines and she is AOx4 and is able to make her own decisions. We discussed continuing her tylenol if needed, resting her leg/decreasing her walking if pain was present, and follow up with orthopedics if symptoms persisted. Daughters did not want to leave and have patient's symptoms to get worse in the next few days, and I told them that was not something I could promise. Differential Diagnosis Differential diagnosis: Likely other (Sciatica, bursitis, tendonitis, arthritis) Critical Care Time Critical Care Time Critical Care Time: No Discharge Plan Discharge Clinical Impression: Arthralgia of hip, left Patient Disposition: Home, Self-Care Condition: Stable Instructions: Hip Pain (ED) Additional Instructions: Continue Tylenol for pain. If symptoms worsen, or Tylenol does not continue to be helpful, please follow-up with orthopedics for further evaluation and treatment. Your blood pressure was elevated above 120/80 today at Urgent Care. This puts you above the threshold for follow up. Please schedule a followup visit with your personal physician as soon as possible, for further evaluation and treatment. Even blood pressure exceeding 120/80 may indicate pre-hypertension. Patient Language: [place] Prescriptions: No Action diphenhydramine HCl [Benadryl] 25 mg capsule 25 mg PO HS PreserVision AREDS 4,296 mcg-226 mg-90 mg capsule 1 cap PO BID acetaminophen 500 mg Capsule 1,000 mg PO Q6H PRN (Reason: Pain) simvastatin 20 mg tablet See Rx Instructions .ROUTE .COMPLEX Qty: 90 1RF Dose Instruction: TAKE ONE TABLET BY MOUTH DAILY Rx Instructions: TAKE ONE TABLET BY MOUTH DAILY cholecalciferol (vitamin D3) [Vitamin D3] 25 mcg (1,000 unit) tablet See Rx Instructions .ROUTE .COMPLEX Qty: 90 1RF Dose Instruction: TAKE ONE TABLET BY MOUTH DAILY Rx Instructions: TAKE ONE TABLET BY MOUTH DAILY losartan 50 mg tablet See Rx Instructions .ROUTE .COMPLEX Qty: 90 1RF Dose Instruction: TAKE ONE TABLET BY MOUTH DAILY AT BEDTIME Rx Instructions: TAKE ONE TABLET BY MOUTH DAILY AT BEDTIME amlodipine [Norvasc] 5 mg tablet 5 mg PO DAILY Qty: 100 1RF levothyroxine 25 mcg tablet See Rx Instructions .ROUTE .COMPLEX Qty: 104 1RF Dose Instruction: TAKE ONE TABLET BY MOUTH EVERY DAY EXCEPT TAKE TWO TABLETS ON THURSDAY Rx Instructions: TAKE ONE TABLET BY MOUTH EVERY DAY EXCEPT TAKE TWO TABLETS ON THURSDAY Follow-up/Referrals: Mick Goldsmith MD [Physician] - [place],Ratna Petty APRN [Primary Care Provider] - Time of Disposition: 18:07
== END 2024-04-08 18:10 | disposition home or self-care (01) ==
PROVIDERS: Emergency Provider Nurse Practitioner; PCP Nurse Practitioner Family
DX: M25.552 Pain in left hip (principal); I10 Essential (primary) hypertension; E78.2 Mixed hyperlipidemia; E03.9 Hypothyroidism, unspecified; R01.1 Cardiac murmur, unspecified; I35.0 Nonrheumatic aortic (valve) stenosis; M19.011 Primary osteoarthritis, right shoulder; Z86.718 Personal history of other venous thrombosis and embolism
CPT/HCPCS: 99211; G0463